=== PATIENT | male | born 1965 | race Caucasian/White ===

== ENCOUNTER → 2018-12-11 10:49 | Outpatient (CLI) | payer BC, SELFPAY ==
[2018-12-11 14:25] LABS: Alanine Aminotransferase 33 U/L (12-78); Albumin Level 3.5 gm/dL (3.4-5.0); Albumin/Globulin Ratio 0.9 (1.1-1.8); Alkaline Phosphatase 94 U/L (46-116); Anion Gap 14.9 mEq/L (5-15); Aspartate Amino Transferase 21 U/L (15-37); Bilirubin,Total 0.3 mg/dL (0.2-1.0); Blood Urea Nitrogen 26 mg/dL (7-18); Calcium 8.7 mg/dL (8.5-10.1); Carbon Dioxide 27 mmol/L (21.0-32.0); Chloride 104 mmol/L (98-107); Chol/HDL Ratio 3.9 (1-3.5); Cholesterol 167 mg/dL (140-200); Creatinine,Serum 1.19 mg/dL (0.70-1.30); Estimated Glomerular Filt Rate 64 ml/min (>60); GFR (African American) 77 ML/MIN (>60); Globulin 3.7 gm/dl (1.3-3.2); Glucose 118 mg/dL (74-106); HDL Cholesterol 43 mg/dL (27-67); LDL Cholesterol 90 mg/dL (0-130); Potassium 3.9 mmoL/L (3.5-5.1); Sodium 142 mmol/L (136-145); Total Protein,Serum 7.2 gm/dL (6.4-8.2); Triglycerides 172 mg/dL (30-200); VLDL Cholesterol 34 mg/dL (0-40)
== END ==
PROVIDERS: PCP Nurse Practitioner Family; Visit Provider Nurse Practitioner Family
DX: Z00.00 Encounter for general adult medical examination without abnormal findings (principal); I10 Essential (primary) hypertension
CPT/HCPCS: 36415; 80053; 80061

== ENCOUNTER → 2019-05-01 07:38 | Outpatient (CLI) | payer BC, SELFPAY ==
[2019-05-01 15:34] LABS: Alanine Aminotransferase 35 U/L (12-78); Albumin Level 3.7 gm/dL (3.4-5.0); Alkaline Phosphatase 78 U/L (46-116); Anion Gap 12.9 mEq/L (5-15); Aspartate Amino Transferase 19 U/L (15-37); Bilirubin,Total 0.4 mg/dL (0.2-1.0); Blood Urea Nitrogen 20 mg/dL (7-18); Calcium 8.7 mg/dL (8.5-10.1); Carbon Dioxide 28 mmol/L (21.0-32.0); Chloride 104 mmol/L (98-107); Chol/HDL Ratio 3.1 (1-3.5); Cholesterol 173 mg/dL (140-200); Creatinine,Serum 1.07 mg/dL (0.70-1.30); Estimated Glomerular Filt Rate 72 ml/min (>60); GFR (African American) 87 ML/MIN (>60); Globulin 3.6 gm/dl (1.3-3.2); Glucose 90 mg/dL (74-106); HDL Cholesterol 56 mg/dL (27-67); LDL Cholesterol 101 mg/dL (0-130); Potassium 3.9 mmoL/L (3.5-5.1); Sodium 141 mmol/L (136-145); Total Protein,Serum 7.3 gm/dL (6.4-8.2); Triglycerides 82 mg/dL (30-200); VLDL Cholesterol 16 mg/dL (0-40)
== END ==
PROVIDERS: PCP Nurse Practitioner Family; Visit Provider Nurse Practitioner Family
DX: Z00.00 Encounter for general adult medical examination without abnormal findings (principal)
CPT/HCPCS: 36415; 80053; 80061

== ENCOUNTER → 2020-01-03 11:50 | Outpatient (CLI) | payer BC, SELFPAY ==
[2020-01-03 14:28] LABS: Prostate Specific Ag Screen 0.9 ng/ml (0.0-4.0)
== END ==
PROVIDERS: Visit Provider Urology
DX: Z12.5 Encounter for screening for malignant neoplasm of prostate (principal)
CPT/HCPCS: 36415; G0103

== ENCOUNTER → 2020-01-24 09:06 | Outpatient (CLI) | payer BC, SELFPAY ==
[2020-01-24 10:43] LABS: Coronavirus 19 IgG Antibody Negative (Negative); Coronavirus 19 IgM Antibody Negative (Negative)
== END ==
PROVIDERS: Visit Provider Internal Medicine Gastroenterology
DX: Z01.818 Encounter for other preprocedural examination (principal); Z12.11 Encounter for screening for malignant neoplasm of colon
CPT/HCPCS: 36415; 86328

== ENCOUNTER 2020-01-25 11:03 | Day surgery (SDC) | payer BC, SELFPAY ==
[2020-01-17 13:19] VITALS: BMI 35.9
[2020-01-25] VITALS (7 sets, daily range): BP systolic 108–130; BP diastolic 55–82; PULSE 63–70; RESP 16–18; TEMP 36.1–36.5; O2SAT 94–97
[2020-01-25 12:45] LABS: POC Glucose,Bedside 142 (70-110)
--- NOTE | 2020-01-25 13:11 | P.PN_ITS ---
[facility] Anesthesia Checklist - Patient Identification Patient Identification: Arm Band - Structural Data Admitted From: Home Planned Operative Procedure/s: colonoscopy Consent for Planned Operative Procedure(s) Verified: Yes Verified Documents: Surgical Consent, History and Physical - NPO Status Verified Time NPO: 00:00 - Additional verifications Anesthesia Reactions: No - Airway Assessment C-Spine Mobility Assessed: Yes (mp3) TMJ Mobility Assessed: Yes Dentition: Good Dentition - Neurological Assessment Level of Consciousness: Awake, Alert - Anesthesia Plan Anesthesia Risk discussed: Yes Anesthesia Plan: Verified ASA Class: III Anesthesia Type: MAC [facility] History I have reviewed the patient's past medical history: Yes Medical History: Reports:: Diabetes Mellitus Type 2, Hypertension Denies:: Cancer, Diabetes Mellitus Type 1, Internal Pacemaker, MRSA, Seizures *Have you ever received a pneumonia vaccine?: Yes *Have you received a flu vaccine this season?: Yes Anesthesia experience/problems:: nac Laterality Cases: Bilateral: Tonsillectomy Other Surgeries: Yes: Appendectomy. No: Pacemaker Amputation: No Fractures: No - *Social History Last grade of school completed: 7th or 8th Smoking Status: Former smoker Alcohol Intake: never Substance Use Type: denies use *Occupational Status:: employed Housing: house *Travel in the last 8 weeks: None Family Hx:: Asthma, Cancer, Diabetes, Heart Attack, Hyperlipidemia, Hypertension , Stroke, Thyroid Disorder
--- NOTE | 2020-01-25 13:31 | P.PCN_ITS ---
[facility] Procedure Note Procedure Note:: Colonoscopy Procedure Report: Colonoscopy with cold snare polypectomy Endoscopist: Phill Hayes II, MD Referring physician: SHEILA Butler Date of Procedure: January 25, 2020 Equipment: Olympus 180 variable stiffness pediatric colonoscope Sedation: MAC sedation Indication: Mr. Fernández is a 54-year-old gentleman who has had pain in the right flank. He did have a CT scan of the abdomen showing some mild diverticulosis in the sigmoid colon. The CAT scan did identify that there was also some fatty infiltration of the liver and a right renal cyst. The patient states the pain does radiate into the back. The patient does state that his father had colon cancer in his 50s. The patient also states that he has 2 paternal uncles with colon cancer and a paternal grandfather with colon cancer in his early 50s. The patient has never had a colonoscopy. He reports no rectal bleeding, weight loss or change in bowel habits. Procedure: Prior to the procedure, a history and physical exam was performed, and patient's medications and allergies were reviewed. The risks, benefits and alternatives of the sedation and procedure were discussed with the patient. All questions were answered and informed consent was obtained. The patient was brought to the procedure room. Patient identification and proposed procedure were verified by the physician and the nurse. The patient was placed in a left lateral decubitus position and the scope was passed under direct vision. Throughout the procedure, the patient's blood pressure, pulse, and oxygen saturations were monitored continuously. The colonoscopy was accomplished without difficulty. The patient tolerated the procedure well. Findings: On digital rectal examination there was normal rectal tone. There were no external hemorrhoids. The prostate was 2+, smooth, soft, symmetric without nodules. The colonoscope was introduced through the anal canal to the rectum and advanced to the cecum. The ileocecal valve and appendiceal orifice were identified. The scope was advanced a short distance into the ileum which appeared grossly normal. The scope was then withdrawn into the colon. The cecum, ascending and transverse colon and mucosa were grossly normal. There were 2 diminutive colon polyps (3 and 4 mm) in the descending colon which were removed via cold snare polypectomy. There were a few mildly scattered diverticuli throughout the descending and sigmoid colon (LEFT colon). The rectum itself was normal. Upon retroflexion within the rectum there were grade 1 internal hemorrhoids. The preparation was excellent throughout with [place] Preparation Score of 9. The cecal time was 11 minutes. Impression: 1. Diminutive colon polyps x2 2. Mild left-sided diverticulosis 3. Grade 1 internal hemorrhoids Plan: I do feel that the patient may have some hepatic flexure syndrome causing his right flank pain. We will discuss treatment options. I would consider additional testing including ultrasound of the right upper quadrant and/or HIDA scan. I will follow-up the polyp histology and recommend repeat screening/surveillance colonoscopy again in 5 years. I would encourage bulk fiber supplementation on a long-term daily maintenance basis.
== END 2020-01-25 14:29 | disposition home or self-care (01) ==
LOC: OUTP 11:05
PROVIDERS: PCP Internal Medicine Adolescent Medicine; Visit Provider Internal Medicine Gastroenterology
PROC: 0DJD8ZZ Inspection of Lower Intestinal Tract, Via Natural or Artificial Opening Endoscopic (ICD-10-PCS; CPT 45378; principal; 2020-01-25 12:00)
DX: Z12.11 Encounter for screening for malignant neoplasm of colon (principal); K63.5 Polyp of colon; K57.30 Diverticulosis of large intestine without perforation or abscess without bleeding; K64.0 First degree hemorrhoids; I10 Essential (primary) hypertension; E11.9 Type 2 diabetes mellitus without complications; K76.0 Fatty (change of) liver, not elsewhere classified; Z85.038 Personal history of other malignant neoplasm of large intestine; Z85.46 Personal history of malignant neoplasm of prostate; Z90.89 Acquired absence of other organs; Z90.49 Acquired absence of other specified parts of digestive tract; Z83.438 Family history of other disorder of lipoprotein metabolism and other lipidemia
CPT/HCPCS: 45385; 82962

== ENCOUNTER → 2020-01-28 09:00 | Outpatient (CLI) | payer BC, SELFPAY ==
--- NOTE | 2020-01-28 09:23 | US_ITS ---
PROCEDURE: US ABDOMEN LIMITED CLINICAL INDICATION: RUQ PAIN COMPARISON: No exams were available for comparison FINDINGS: PANCREAS: Unremarkable. No obvious mass or abnormal fluid collection. No ductal dilatation LIVER: Diffuse increased echogenicity of the liver with poor through transmission of sound consistent with hepatic steatosis. No focal liver lesion demonstrated. There is appropriate direction of blood flow within non dilated portal vein. RIGHT KIDNEY: 5.5 cm benign-appearing cyst lower pole right kidney GALLBLADDER: No gallstones, gallbladder wall thickening, pericholecystic fluid, or biliary dilatation. IMPRESSION: Right renal cyst Fatty liver Unremarkable gallbladder Dictated by: Stewart Jordan MD 01/29/2020 07:42 Electronically signed by Stewart Jordan MD in [place] 01/29/2020 07:42
== END ==
PROVIDERS: Visit Provider Internal Medicine Gastroenterology
DX: R10.11 Right upper quadrant pain (principal)
CPT/HCPCS: 76705

== ENCOUNTER → 2020-01-31 09:26 | Outpatient (POV) | payer BC, SELFPAY ==
[2020-01-31 09:53] VITALS: BP 123/87; PULSE 75; RESP 18; TEMP 36.8; O2SAT 99; BMI 35.5
--- NOTE | 2020-01-31 11:00 | HMH.PMCON ---
Assessment and Plan (1) Degenerative joint disease (DJD) of lumbar spine Current visit: Yes Status: Chronic Category: Medical Code(s): M47.816 - Spondylosis without myelopathy or radiculopathy, lumbar region (2) Lumbar radiculopathy Current visit: Yes Status: Chronic Category: Medical Code(s): M54.16 - Radiculopathy, lumbar region (3) Facet arthropathy Current visit: Yes Status: Chronic Category: Medical Code(s): M47.819 - Spondylosis without myelopathy or radiculopathy, site unspecified - Assessment and plan all Dx Assessment and Plan for all problems:: We will start the patient on Flexeril 10 mg 1 tablet p.o. 3 times daily. He is currently taking diclofenac. We will schedule him for medial branch block/facet joint injections at L4-L5 L5-S1. He does have imaging that does show some facet arthropathy. We will follow-up with him after his injections to reassess his symptoms. He is not on any anticoagulation therapy. He is currently undergoing physical therapy he has been instructed to contact clinic if he has any concerns before his next appointment. The patient and I specifically discussed risk factors for COVID19. These risks include, but are not limited to age greater than 60, heart or lung disease, diabetes, immunosuppression, and travel. We also discussed NSAIDs may worsen COVID19 infection or symptoms. Patient should not use NSAIDs to treat COVID19 signs or symptoms. Patient was also informed that any type of corticosteroid of any form (oral or injection) will decrease the patient's immune system response and may increase the likelihood of COVID19 infection [address] symptoms[address] Helton has reviewed this note and agrees with this plan of care. This note was dictated using voice recognition software and make contain errors or omissions. HPI - Data of Consult Patient: new to practice Consult date: 01/31/20 Requesting Physician: Alannah Valverde APRN Primary Care Provider: Sony Rucker MD - Consult Narrative Reason for consult: Low back pain History of present illness: Mr. Fernández is a 54 year old male who presents today for consultation for low back pain. Patient says that he has had back pain for more than 5 years, however, it is progressively gotten worse over the last 2 months. He says his pain is worse with bending forward and extension at his waist. He says mowing grass or doing the lawn care causes worsening pain. He says any type of movement when he leans forward causes him worsening pain. He does rate his pain a 6 out of 10 today. Patient says that he has tried diclofenac and is currently taking the medication but has not given him much relief. He is currently in physical therapy. He says that he initially was having leg pain, however, the physical therapy has taken care of that pain. His pain now is primarily with extension and turning at his waist. He does also use ice and heat therapies. CC: Alannah Valverde APRN [facility] History I have reviewed the patient's past medical history: Yes Medical History: Reports:: Diabetes Mellitus Type 2, Hypertension Denies:: Cancer, Diabetes Mellitus Type 1, Internal Pacemaker, MRSA, Seizures *Have you ever received a pneumonia vaccine?: Yes *Have you received a flu vaccine this season?: Yes Other Medical History: Reports: Arthritis Laterality Cases: Bilateral: Tonsillectomy Other Surgeries: Yes: Appendectomy. No: Pacemaker Amputation: No Fractures: No - *Social History Smoking Status: Never smoker Alcohol Intake: never Substance Use Type: denies use *Occupational Status:: other Housing: house *Travel in the last 8 weeks: None Family Hx:: Unable to obtain Review of Systems - Review of Systems Review of Systems General: No recent weight changes, no fever, no sleep disturbances Respiratory: No cough, no shortness of air, no recurring pulmonary infections Cardiovascular/peripheral vascular: No chest pain, no palpitations, no edema,
== END ==
PROVIDERS: PCP Internal Medicine Adolescent Medicine; Visit Provider Clinical Nurse Specialist Family Health
DX: M47.896 Other spondylosis, lumbar region (principal); M54.16 Radiculopathy, lumbar region; M12.88 Other specific arthropathies, not elsewhere classified, other specified site
CPT/HCPCS: 99202

== ENCOUNTER 2020-02-15 14:00 | Day surgery (SDC) | payer BC, SELFPAY ==
[2020-02-15 14:42] VITALS: BP 126/84; PULSE 92; RESP 18; TEMP 36.1; O2SAT 96; BMI 35.4
[2020-02-15 15:22] VITALS: BP 149/88; PULSE 75; RESP 18
[2020-02-15 15:23] VITALS: BP 148/88; PULSE 90; RESP 18; O2SAT 99
--- NOTE | 2020-02-15 15:28 | P.PCN_ITS ---
- Procedure Date: 02/15/20 Time: 15:28 Anesthesiologist:: Aquiles Helton MD Complications:: None Pre-procedure Diagnosis:: Degenerative disc disease of lumbar spine with lumbar spondylosis and facet arthropathy of lumbar spine Post-procedure Diagnosis:: Same Indications for Procedure:: The patient is a pleasant 54-year-old white male who we are treating for low back pain with lumbar spondylosis and facet arthropathy of lumbar spine. He has increased pain with extension and twisting. He has tenderness over the facet joints of L4-5 and L5-S1. We will do bilateral lumbar medial branch block/facet joint injections of L4-5 and L5-S1 today to help him with his pain symptoms. Procedure Details:: Lumbar medial branch block Informed consent was obtained and the risks and benefits of the procedure was explained to the patient. The back was prepped using ChloraPrep. The skin and subcutaneous tissues were anesthetized using lidocaine. I placed 22-gauge sp inal needles into the facet joint/medial branches of L4-L5 and L5-S1 bilaterally. Needle placement was confirmed with dye. After this we injected 3 mL bupivacaine 0.25% and Depo-Medrol 20 mg into each facet joint/medial branch of L4-L5 and L5-S1 bilaterally. We used a total of 80 mg Depo-Medrol for both levels bilaterally. The patient tolerated the procedure well with no complications. Plan and Disposition:: We will follow-up with him in 2 weeks. Will reevaluate his symptoms at that time. If successful we will seek approval for radiofrequency ablation to the fa cet joint/medial branches of L4-5 and L5-S1 bilaterally.
[2020-02-15 15:34] VITALS: BP 131/91; PULSE 80; RESP 18; O2SAT 96
== END 2020-02-15 15:35 | disposition home or self-care (01) ==
LOC: SC.PAINP 14:01
PROVIDERS: PCP Nurse Practitioner Family; Visit Provider Anesthesiology
DX: M51.36 Other intervertebral disc degeneration, lumbar region (principal); M47.816 Spondylosis without myelopathy or radiculopathy, lumbar region; M12.88 Other specific arthropathies, not elsewhere classified, other specified site; E11.9 Type 2 diabetes mellitus without complications; I10 Essential (primary) hypertension; K76.0 Fatty (change of) liver, not elsewhere classified; Z90.89 Acquired absence of other organs; Z88.8 Allergy status to other drugs, medicaments and biological substances; Z79.82 Long term (current) use of aspirin; Z79.84 Long term (current) use of oral hypoglycemic drugs; Z79.4 Long term (current) use of insulin; Z79.899 Other long term (current) drug therapy
CPT/HCPCS: 64493; 64494; J1030; Q9966

== ENCOUNTER → 2020-02-25 10:05 | Outpatient (CLI) | payer BC, SELFPAY ==
--- NOTE | 2020-02-25 10:08 | NM_ITS ---
PROCEDURE: NM HEPATOBILIARY W PHARM CLINICAL INDICATION: RUQ PAIN COMPARISON: No exams were available for comparison TECHNIQUE: DOSE: 8.3 mCi technetium Choletec and 2.3 mcg of CCK FINDINGS: Homogeneous activity is present within the hepatic parenchyma. Activity is present in the gallbladder by 5 minutes. Activity is present in the small bowel by 55 minutes. The gallbladder ejection fraction is calculated to be 15 percent. Patient reported mild pain with CCK infusion IMPRESSION: Low ejection fraction 15 percent with mild pain reported with CCK infusion and some delay in visualization of the small bowel. These findings may be seen with gallbladder dyskinesia. No evidence of common or cystic duct obstruction. Dictated by: Stewart Jordan MD 02/25/2020 15:21 Stewart Jordan MD in [place] 02/25/2020 15:21
--- NOTE | 2020-02-25 10:48 | HMH.ITSHM ---
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 []TAMSULOSIN METFORMIN LISINOPRIL DICLOFENAC ATENOLOL AMLODIPINE MULTIVITAMIN FLEXERIL ASA
== END ==
PROVIDERS: PCP Nurse Practitioner Family; Visit Provider Internal Medicine Gastroenterology
DX: R10.11 Right upper quadrant pain (principal)
CPT/HCPCS: 78227; A9537; J2805

== ENCOUNTER 2020-03-05 08:00 | Outpatient (RCR) | payer BC, SELFPAY | END 2020-03-05 12:00 | disposition home or self-care (01) | LOC: PT.CARL 08:00 | PROVIDERS: PCP Nurse Practitioner Family; Visit Provider Nurse Practitioner Family | DX: M54.42 Lumbago with sciatica, left side (principal) | CPT/HCPCS: 97010; 97014; 97110; 97140; 97163; G0283 ==

== ENCOUNTER → 2020-03-12 14:53 | Outpatient (CLI) | payer BC, SELFPAY ==
--- NOTE | 2020-03-12 15:13 | ECG_ITS ---
APPROVED REPORT Exam: Resting ECG HR:99 bpm ECG Measurements Heart Rate 99 AXES AK 136 P 59 QRSd 84 QRS 43 QT 350 T 18 QTc 449 <Conclusion> Normal sinus rhythm Normal ECG Electronically signed by : Sony Rucker, 03/16/2020 15:07:14
[2020-03-12 15:18] LABS: Basophils % 0.3 % (0.1-2.0); Eosinophils # 0.1 K/mm3 (0.0-0.4); Eosinophils % 1.2 % (0.1-12.0); Hemoglobin 14.8 g/dL (14.1-18.0); Lymphocytes # 2.1 K/mm3 (0.7-4.5); Lymphocytes % 19.8 % (10-50); Mean Corpuscular HGB Conc 35.1 g/dL (31.8-35.4); Mean Corpuscular Hemoglobin 32.8 pg (27.0-31.2); Mean Corpuscular Volume 93.5 fl (80-94); Mean Platelet Volume 7.9 fl (7.4-10.4); Monocytes # 0.7 K/mm3 (0.1-1.0); Monocytes % 6.9 % (1.7-9.3); Neutrophils # 7.4 K/mm3 (1.8-7.8); Neutrophils % 71.8 % (37.0-80.0); Platelet Count 195 K/mm3 (142-424); Red Cell Distribution Width 14.2 % (11.5-17.5); White Blood Count 10.4 K/mm3 (4.8-10.8)
[2020-03-12 15:50] LABS: Chloride 100 mmol/L (98-107); Potassium 4.2 mmoL/L (3.5-5.1); Sodium 140 mmol/L (136-145)
[2020-03-12 15:53] LABS: Alanine Aminotransferase 64 U/L (12-78); Albumin Level 4.1 g/dl (3.5-5.0); Albumin/Globulin Ratio 1.3 (1.1-1.8); Alkaline Phosphatase 89 U/L (38-126); Anion Gap 15.2 mEq/L (5-15); Aspartate Amino Transferase 43 U/L (17-59); Bilirubin,Total 0.4 mg/dl (0.2-1.3); Blood Urea Nitrogen 26 mg/dl (9-20); Calcium 9.6 mg/dl (8.4-10.2); Carbon Dioxide 29 mmol/L (22.0-30.0); Estimated Glomerular Filt Rate 70 ml/min (>60); GFR (African American) 84 ML/MIN (>60); Globulin 3.1 g/dL (1.3-3.2); Glucose 179 mg/dl (74-100); Total Protein,Serum 7.2 g/dl (6.3-8.2)
[2020-03-12 16:00] LABS: Coronavirus 19 IgG Antibody Negative (Negative); Coronavirus 19 IgM Antibody Negative (Negative)
== END ==
PROVIDERS: Visit Provider Surgery
DX: Z01.818 Encounter for other preprocedural examination (principal); K81.1 Chronic cholecystitis
CPT/HCPCS: 36415; 80053; 85025; 86328; 93005

== ENCOUNTER → 2020-03-13 13:28 | Outpatient (POV) | payer BC, SELFPAY ==
[2020-03-13 14:25] VITALS: BP 151/102; PULSE 113; RESP 21; TEMP 36.8; O2SAT 97; BMI 21.4
--- NOTE | 2020-03-13 14:30 | HMH.PAINSOAP ---
[facility] Pain Management SOAP Note Subjective:: Patient is a 54-year-old male who presents today for follow-up after medial branch block/facet joint injections at L4-L5 L5-S1. Patient is being treated for low back pain. He reports that he got approximately 90% relief for 4 days. His pain has returned. He rates his pain an 8 out of 10 today. 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 He says that he has had difficulty over the last few days doing outdoor work due to the pain. He is scheduled to undergo a cholecystectomy tomorrow morning. Would like to proceed with a repeat injection to see if he gets longer relief. He and I did discuss possible RFA in the future if his rib pain returns after the medial branch block again. We will need to postpone any injective therapy until he has healed from his cholecystectomy. Patient is continuing with a home stretching program. Review of Systems General: No recent weight changes, no fever, no sleep disturbances Respiratory: No cough, no shortness of air, no recurring pulmonary infections Cardiovascular/peripheral vascular: No chest pain, no palpitations, no edema, no shortness of breath Gastrointestinal: No new onset incontinence, normal bowel movements reported Genitourinary: No new onset incontinence Musculoskeletal: low back pain Psychiatric: Normal mood/affect Neurological: [Denies weakness in extremities], [denies balance issues] Objective:: Physical exam General: Alert and oriented x3, no acute distress, pleasant and cooperative, [on room air] Lungs: Respirations even and unlabored, symmetrical chest expansion Eyes: PERRL Musculoskeletal: Flexion and extension of lumbar spine somewhat guarded secondary to pain, deep tendon reflexes normal, strength in upper and lower extremities [5/5], [abnormal gait noted] positive Kemps test Neurological: Speech clear, datastage consultant equal, no gross sensory deficit Assessment:: Degenerative disc disease lumbar spine with lumbar spondylosis and facet arthropathy lumbar spine Plan:: We will schedule the patient for repeat medial branch block/facet joint injections at L4-L5 bilaterally. He is not on any anticoagulation therapy. We will plan for the injections after he has fully healed from his cholecystectomy. We will see him back in the clinic after his injections to reassess his symptoms. The patient has been instructed to contact clinic if he has any concerns before his next appointment. The patient and I specifically discussed risk factors for COVID19. These risks include, but are not limited to age greater than 60, heart or lung disease, diabetes, immunosuppression, and travel. We also discussed NSAIDs may worsen COVID19 infection or symptoms. Patient should not use NSAIDs to treat COVID19 signs or symptoms. Patient was also informed that any type of corticosteroid of any form (oral or injection) will decrease the patient's immune system response and may increase the likelihood of COVID19 infection [address] symptoms[address] Helton has reviewed this note and agrees with this plan of care. This note was dictated using voice recognition software and make contain errors or omissions. [facility] History I have reviewed the patient's past medical history: Yes Medical History: Reports:: Diabetes Mellitus Type 2, Hypertension Denies:: Cancer, Diabetes Mellitus Type 1, Internal Pacemaker, MRSA, Seizures *Have you ever received a pneumonia vaccine?: Yes *Have you received a flu vaccine this season?: Yes Other Medical History: Reports: Arthritis Laterality Cases: Bilateral: Tonsillectomy Other Surgeries: Yes: No Previous Surgery, Appendectomy, Colonoscopy. No: Pacemaker Amputation: No Fractures: No - *Social History Smoking Status: Never smoker Alcohol Intake: never Substance Use Type: denies use *Occupational Status:: employed Housing: house Household Members: family *Travel in the last 8 weeks: None Family Hx:: No significant family history
== END ==
PROVIDERS: PCP Internal Medicine Adolescent Medicine; Visit Provider Clinical Nurse Specialist Family Health
DX: M51.36 Other intervertebral disc degeneration, lumbar region (principal); M47.816 Spondylosis without myelopathy or radiculopathy, lumbar region; M12.88 Other specific arthropathies, not elsewhere classified, other specified site
CPT/HCPCS: 99212

== ENCOUNTER 2020-03-14 06:55 | Day surgery (SDC) | payer BC, SELFPAY ==
[2020-03-13 12:27] VITALS: BMI 34.2
[2020-03-14] VITALS (14 sets, daily range): BP systolic 124–157; BP diastolic 65–97; PULSE 69–77; RESP 12–18; TEMP 36.3–43; O2SAT 92–96
[2020-03-14 07:22] LABS: POC Glucose,Bedside 145 (70-110)
--- NOTE | 2020-03-14 07:48 | P.PN_ITS ---
[facility] Anesthesia Checklist - Patient Identification Patient Identification: Arm Band - Structural Data Admitted From: Home Planned Operative Procedure/s: laparoscopic cholecystectomy Consent for Planned Operative Procedure(s) Verified: Yes Verified Documents: Surgical Consent, History and Physical - NPO Status Verified Time NPO: 00:00 - Additional verifications Anesthesia Reactions: No Hx Blood Transfusions: No Blood Transfusion Reaction: No - Airway Assessment C-Spine Mobility Assessed: Yes (mp2) TMJ Mobility Assessed: Yes Dentition: Good Dentition - Neurological Assessment Level of Consciousness: Awake, Alert - Anesthesia Plan Anesthesia Risk discussed: Yes Anesthesia Plan: Verified ASA Class: III Anesthesia Type: General [facility] History I have reviewed the patient's past medical history: Yes Medical History: Reports:: Asthma, Diabetes Mellitus Type 2, Hypertension Denies:: Cancer, Internal Pacemaker, MRSA, Seizures *Have you ever received a pneumonia vaccine?: Yes *Have you received a flu vaccine this season?: Yes Other Medical History: Reports: Arthritis. Denies: Blood Transfusion Reaction Anesthesia experience/problems:: nac Laterality Cases: Bilateral: Tonsillectomy Other Surgeries: Yes: Appendectomy, Colonoscopy. No: Pacemaker Amputation: No Fractures: No - *Social History Last grade of school completed: 9th or 10th Smoking Status: Never smoker Alcohol Intake: never Substance Use Type: denies use *Occupational Status:: unemployed Housing: house Household Members: family *Travel in the last 8 weeks: None Family Hx:: Unable to obtain
--- NOTE | 2020-03-14 09:58 | P.OP_ITS ---
Date of procedure: 03/14/20 Pre-op Diagnosis:: biliary dyskinesia Post-op Diagnosis:: Chronic cholecystitis Procedure performed:: Laparoscopic cholecystectomy Surgeon:: Mukund Rivera MD BANDOLEER STRAIGHTENER STAMPER:: Jeovanny Mcdonald Anesthesia: GETA Estimated blood loss (mL): 15 Operative findings:: Significant pericholecystic fat stranding with dense adhesions between gall bladder and omentum Severe thickening of infundibulum Dome down approach utilized secondary to severe thickening of the infundibulum and chronic inflammatory changes Operative note:: After informed consent was obtained, the patient was taken to the operating room and placed in the supine position. General anesthesia was induced and the abdomen was prepped and draped in a sterile fashion. After infiltration with local anesthetic an infraumbilical incision was made. A Veress needle was placed in position. The abdomen was insufflated. A 5 mm optical trocar was placed in position. Under direct visualization, a 12 mm trocar was placed in the subxiphoid position and 2 additional 5 mm trocars were placed in the right upper quadrant. The gallbladder was elevated up and over the liver margin. The tissue around the cystic duct was carefully dissected. The entire infundibular region was very thickened and dissection was very difficult. The cystic artery was dissected free from surrounding tissue. 2 clips were placed then the artery was transected along the infundibular margin. The decision was made to proceed with a dome down approach . Harmonic lillie were then utilized to dissect the gallbladder away from the liver margin. Endoloops (x2) were then placed around the gallbladder and secured at the infundibulum. The gallbladder was then transected with harmonic lillie. It was placed in a retrieval bag and removed through the subxiphoid trocar site. The right upper quadrant was thoroughly irrigated. No active bleeding or bile leak was noted. Fascia at the subxiphoid trocar site was reapproximated utilizing the NeoClose device. The remaining trocars were removed. All wounds were irrigated and skin was closed with 4-0 Monocryl in a subcuticular fashion. Steri-Strips were applied. The patient's anesthetic agents were reversed and extubation was completed prior to transfer to recovery in stable condition. Condition: stable Disposition: PACU Specimens:: Gallbladder Complications:: No immediate
--- NOTE | 2020-03-14 10:06 | P.PN_ITS ---
[facility] Anesthesia Record Part I Intake, IV Amount: 1,500 Estimated blood loss (mL): 20 Urine output (mL): 0 Blood Pressure: 131/65 SaO2: 96 Pulse Rate: 71 Respiratory Rate: 12 Temperature: 97.3 F Patient is:: Awake, Stable Stable to PACU at:: 10:05
--- NOTE | 2020-03-17 09:54 | HMH.ANESII ---
[facility] Anesthesia Record Part II Discharge Time: 10:45 Destination: Surgical Day Care (OP Surgery) PACU nurse assessment reviewed?: Yes Patient Condition:: Good Anesthesia Complications:: None Swallowing reflex intact?: Yes Cyanosis?: No Blood Pressure: 124/83 Pulse Rate: 76 Temperature: 98.3 F Mental Status: Alert & Oriented Pain level:: 5 Nausea and/or vomitting:: None Intake, IV Amount: 0 (Normovolemic)
[2020-03-17 09:56] VITALS: BP 124/83; PULSE 76; TEMP 36.8
== END 2020-03-14 12:05 | disposition home or self-care (01) ==
LOC: OR 06:55
PROVIDERS: PCP Internal Medicine Adolescent Medicine; Visit Provider Surgery
PROC: 0FT44ZZ Resection of Gallbladder, Percutaneous Endoscopic Approach (ICD-10-PCS; CPT 47562; principal; 2020-03-14 08:30)
DX: K81.1 Chronic cholecystitis; K82.8 Other specified diseases of gallbladder; E11.9 Type 2 diabetes mellitus without complications; I10 Essential (primary) hypertension; J45.909 Unspecified asthma, uncomplicated; Z90.89 Acquired absence of other organs; Z90.49 Acquired absence of other specified parts of digestive tract; Z79.82 Long term (current) use of aspirin; Z79.899 Other long term (current) drug therapy; Z79.84 Long term (current) use of oral hypoglycemic drugs; M19.90 Unspecified osteoarthritis, unspecified site
CPT/HCPCS: 47562; 82962; 96374; J2405; J2710

== ENCOUNTER → 2020-04-02 10:20 | Outpatient (CLI) | payer BC, SELFPAY ==
[2020-04-02 13:52] LABS: Chloride 100 mmol/L (98-107); Potassium 3.8 mmoL/L (3.5-5.1); Sodium 138 mmol/L (136-145)
[2020-04-02 13:54] LABS: Alanine Aminotransferase 60 U/L (12-78); Aspartate Amino Transferase 40 U/L (17-59); Blood Urea Nitrogen 20 mg/dl (9-20); Estimated Glomerular Filt Rate 78 ml/min (>60); GFR (African American) 94 ML/MIN (>60)
[2020-04-02 13:55] LABS: Albumin Level 3.9 g/dl (3.5-5.0); Albumin/Globulin Ratio 1.3 (1.1-1.8); Alkaline Phosphatase 91 U/L (38-126); Anion Gap 13.8 mEq/L (5-15); Bilirubin,Total 0.7 mg/dl (0.2-1.3); Carbon Dioxide 28 mmol/L (22.0-30.0); Chol/HDL Ratio 4.7 (1-3.5); Cholesterol 227 mg/dl (140-200); Globulin 3.1 g/dL (1.3-3.2); Glucose 203 mg/dl (74-100); HDL Cholesterol 48 mg/dl (40-60); Triglycerides 165 mg/dl (30-150); VLDL Cholesterol 33 mg/dL (0-40)
== END ==
PROVIDERS: Visit Provider Nurse Practitioner Family
DX: E11.65 Type 2 diabetes mellitus with hyperglycemia (principal); Z79.84 Long term (current) use of oral hypoglycemic drugs
CPT/HCPCS: 36415; 80053; 80061; 83036

== ENCOUNTER 2020-04-11 09:41 | Day surgery (SDC) | payer BC, SELFPAY ==
[2020-04-11 10:01] VITALS: BP 122/83; PULSE 91; RESP 20; TEMP 36.5; O2SAT 91; BMI 35.1
[2020-04-11 10:38] VITALS: BP 140/78; PULSE 85
[2020-04-11 10:39] VITALS: BP 140/79; PULSE 85; RESP 18; O2SAT 98
--- NOTE | 2020-04-11 10:45 | P.PCN_ITS ---
- Procedure Date: 04/11/20 Time: 10:45 Anesthesiologist:: Aquiles Helton MD Complications:: None Pre-procedure Diagnosis:: Degenerative disc disease of lumbar spine with lumbar spondylosis and lumbar facet arthropathy Post-procedure Diagnosis:: Same Indications for Procedure:: This patient is a pleasant 54-year-old [place] male who we have been treating for low back pain with lumbar spondylosis and lumbar facet arthropathy. Patient got 90% relief for 4 days after his last round of medial branch blocks. 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 We will plan on repeat bilateral lumbar medial branch blocks today. We can only take him off work for today. If these are successful we will plan on RFA ablation to the same facet joints of L4-5 and L5-S1. Procedure Details:: Lumbar medial branch block Informed consent was obtained and the risks and benefits of the procedure was explained to the patient. The back was prepped using ChloraPrep. The skin and subcutaneous tissues were anesthetized using lidocaine. I placed 22-gauge spinal needles into the facet joint/medial branches of L4-L5 and L5-S1 bilaterally. Needle placement was confirmed with dye. After this we injected 3 mL bupivacaine 0.25% and Depo-Medrol 20 mg into each facet joint/medial branch of L4-L5 and L5-S1 bilaterally. We used a total of 80 mg Depo-Medrol for both levels bilaterally. The patient tolerated the procedure well with no complications. Plan and Disposition:: We will follow-up with him in 1 week. We will reevaluate his symptoms at that time. Again if successful we will plan on RF ablation to the same levels of L4- 5 and L5-S1 bilaterally.
[2020-04-11 11:00] VITALS: BP 130/90; PULSE 83; RESP 18; O2SAT 96
== END 2020-04-11 11:00 | disposition home or self-care (01) ==
LOC: SC.PAINP 09:42
PROVIDERS: PCP Internal Medicine Adolescent Medicine; Visit Provider Anesthesiology
DX: M51.36 Other intervertebral disc degeneration, lumbar region (principal); M47.816 Spondylosis without myelopathy or radiculopathy, lumbar region; M12.88 Other specific arthropathies, not elsewhere classified, other specified site; E11.9 Type 2 diabetes mellitus without complications; I10 Essential (primary) hypertension; K21.9 Gastro-esophageal reflux disease without esophagitis; K76.0 Fatty (change of) liver, not elsewhere classified; K82.9 Disease of gallbladder, unspecified; Z90.89 Acquired absence of other organs
CPT/HCPCS: 64493; 64494; J1030; Q9966

== ENCOUNTER → 2020-04-14 10:08 | Outpatient (POV) | payer BC, SELFPAY | PROVIDERS: Visit Provider Nurse Practitioner Family | DX: Z00.00 Encounter for general adult medical examination without abnormal findings (principal) ==

== ENCOUNTER 2020-10-17 10:46 | Emergency (ER) | payer OTHER, SELFPAY ==
[2020-10-17 10:47] VITALS: BP 139/91; PULSE 104; RESP 16; TEMP 36.6; O2SAT 98; BMI 34.2
[2020-10-17 11:10] VITALS: BP 139/91; PULSE 104; RESP 16; TEMP 36.7; O2SAT 98; BMI 34.4
--- NOTE | 2020-10-17 11:26 | HMH.EDUTC ---
[facility] [place] Clinical Impression: Low back pain Qualifiers: Chronicity: unspecified Back pain laterality: midline Sciatica presence: with sciatica Sciatica laterality: bilateral sciatica Qualified Code(s): M54.41 - Lumbago with sciatica, right side Disposition: Home, Self-Care Condition on Discharge: Good Instructions: DI for Low Back Pain, DI for Chronic Pain -- Adult, DI for Back Pain With Sciatica Additional Instructions: Continue taking prescribed muscle relaxers and pain medication as prescribed FOllow up with your Family Doctor for further treatment and evaluation Return if needed Call Dr Helton office about starting to see him again for pain management Straight to ER if any life threatening symptoms Referrals: Rayshawn Goodwin MD [Primary Care Provider] - As needed Time of Disposition: 11:59 Medical Decision Making - Miller Inquiry Pt receiving controlled substance: No Miller was queried for this patient: No Vital Signs: 10/17/20 10:47 10/17/20 11:10 Temperature 98 F 98.0 F Temperature Source Oral Oral Pulse Rate [Radial] 104 H 104 H Respiratory Rate 16 16 Blood Pressure [Right Arm] 139/91 H 139/91 H Blood Pressure Mean [Right Arm] 107 107 Blood Pressure Source [Right Arm] Automatic Cuff Blood Pressure Position [Right Arm] Sitting Sitting 02 Sat by Pulse Oximetry 98 98 Oxygen Delivery Method Room Air Room Air Orders (Tests/Meds): ED MEDICATIONS Discontinued Medications Generic Name Dose Route Start Last Admin Trade Name Freq PRN Reason Stop Dose Admin Ketorolac Tromethamine 60 mg 10/17/20 11:36 10/17/20 11:49 Ketorolac 60mg/2ml Vial IM 10/17/20 11:37 60 mg ONCE ONE Administration Methylprednisolone Sodium Succinate 125 mg 10/17/20 11:36 10/17/20 11:49 Methylprednisolone Sod Succ 125mg Vial IM 10/17/20 11:37 125 mg ONCE ONE Administration Medical Decision Narrative: Patient states that he has taken torodol and solu medrol before without reactions or complications Discussed xray and patient declined states that he has had Xray and MRI on his back already and has a pinched nerve and does not want xray at this time Patient reports medication helped with pain [facility] [place] - General Stated complaint: back pain, no accident Time Seen by Provider: 10/17/20 11:26 Mode of Arrival: Ambulatory Source of Information: Patient Limitations: No Limitations Description of Symptoms (Recalled from Triage Doc. by RN): PATIENT C/O LOWER BACK PAIN THAT RADIATES DOWN BILATERAL LEGS X SEVERAL MONTHS. NO KNOWN INJURY HEENT Symptoms (Recalled from RN notes): No Resp Symptoms (Recalled from RN notes): No Skin Symptoms (Recalled from RN notes): No MS Symptoms (Recalled from RN notes): Yes Functional Status (Recalled from RN notes): WNL - History of Present Illness Provider Complaint: Patient states that he has had low back pain and sciatica for several years State that he was seeing Dr Helton and getting injections but lost his job and insurance and hasnt been able to get any States that he has been having pain in his lower back area that radiates down into his buttock area on both sides and upper legs like he had before and came in today to see if he could get injections to help it Denies loss of control of bowel or bladder - Related Data Home Medications Medication Instructions Recorded Confirmed atenolol 50 mg tablet 50 mg PO DAILY 01/03/20 10/17/20 metformin 500 mg tablet 1,000 mg PO DAILY 01/03/20 10/17/20 Allergies Allergy/AdvReac Type Severity Reaction Status Date / Time Iodinated Contrast Media Allergy Vomiting Verified 04/11/20 10:14 oxybutynin Allergy Hives Verified 04/11/20 10:14 - Worker's Comp Is this a Worker's Comp case?: No [facility] History - Hepatitis A Screen Drug use history?: No High risk sexual behaviors?: No History of sexually transmitted infection?: No Currently employed?: No Childcare worker?: No Do you have indoor plumbing?: Yes Do you have e
[2020-10-17 12:04] VITALS: BP 139/91; PULSE 104; RESP 16; TEMP 36.7; O2SAT 98
== END 2020-10-17 12:07 | disposition home or self-care (01) ==
PROVIDERS: Emergency Provider Nurse Practitioner; PCP Emergency Medicine
DX: M54.41 Lumbago with sciatica, right side (principal); E11.9 Type 2 diabetes mellitus without complications; I10 Essential (primary) hypertension; J45.909 Unspecified asthma, uncomplicated; Z79.899 Other long term (current) drug therapy
CPT/HCPCS: 96372; 99202; G0463

== ENCOUNTER → 2020-11-06 10:08 | Outpatient (POV) | payer OTHER, SELFPAY ==
[2020-11-06 10:13] VITALS: BP 110/78; PULSE 91; RESP 18; O2SAT 98; BMI 34.2
--- NOTE | 2020-11-06 12:40 | HMH.PAINSOAP ---
[facility] Pain Management SOAP Note Subjective:: Patient is a very pleasant 55-year-old male who presents today a for a follow-up after 2 rounds of medial branch blocks getting over 90% relief for up to 4 days after his injections. Patient is interested in moving forward with radiofrequency ablation. 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 He has tried and failed anti-inflammatories, physical therapy, injective therapy. He rates his pain a 9 out of 10. ROS General: no recent weight change, no fever, no sleep disturbances Respiratory: no cough, no shortness of air, no recurring pulmonary infections Cardiovascular/Peripheral Vascular: No chest pain, No palpitations, no edema, no shortness of breath. Gastrointestinal: no new onset incontinence, normal bowel movements reported Genitourinary: no new onset incontinence Musculoskeletal: Back pain Psychiatric: normal mood/ affect Neurological: [denies new onset weakness in extremities], [denies new onset balance issues] Objective:: Physical Exam General: Alert and oriented x3, no acute distress, pleasant and cooperative, [on room air] Lungs: Resps E/U, Symmetrical chest expansion, Eyes: PERRL Musculoskeletal: Flexion and extension of lumbar spine somewhat guarded secondary to pain, deep tendon reflexes normal, strength in upper and lower extremities [5/5], antalgic gait noted Neurological: speech clear, clinical editor equal, no gross sensory deficits Assessment:: 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 He is not on any anticoagulation therapy. I will follow-up with him afterwards reassess his symptoms at that time he has been instructed to call the office if he has any issues prior to his next appointment. Dr. Helton has reviewed this note and agrees with this plan of care. This note was dictated using voice recognition software and may contain errors or omissions [facility] History I have reviewed the patient's past medical history: Yes Medical History: Reports:: Asthma, Diabetes Mellitus Type 2, Hypertension Denies:: Cancer, Diabetes Mellitus Type 1, Internal Pacemaker, MRSA, Seizures *Have you ever received a pneumonia vaccine?: Yes *Have you received a flu vaccine this season?: Yes Other Medical History: Reports: Arthritis. Denies: Blood Transfusion Reaction Laterality Cases: Bilateral: Tonsillectomy Other Surgeries: Yes: No Previous Surgery, Appendectomy, Cardiac Catheterization, Colonoscopy. No: Pacemaker Amputation: No Fractures: No - *Social History Smoking Status: Never smoker Alcohol Intake: never Substance Use Type: denies use *Occupational Status:: other Housing: house Household Members: significant other *Travel in the last 8 weeks: None Family Hx:: Unable to obtain
== END ==
PROVIDERS: PCP Internal Medicine Adolescent Medicine; Visit Provider Clinical Nurse Specialist Family Health
DX: M51.36 Other intervertebral disc degeneration, lumbar region (principal); M47.816 Spondylosis without myelopathy or radiculopathy, lumbar region; M54.06 Panniculitis affecting regions of neck and back, lumbar region
CPT/HCPCS: 99212; G0463

== ENCOUNTER 2020-11-14 12:37 | Day surgery (SDC) | payer OTHER, SELFPAY ==
[2020-11-14 12:42] VITALS: BP 118/78; PULSE 98; RESP 18; TEMP 36.1; O2SAT 96; BMI 34.2
[2020-11-14 13:11] VITALS: BP 117/85; PULSE 104; RESP 18; O2SAT 98
[2020-11-14 13:13] VITALS: BP 118/86; PULSE 105; RESP 18; O2SAT 98
--- NOTE | 2020-11-14 13:32 | HMH.PMPROC ---
- Procedure Date: 11/14/20 Time: 13:32 Anesthesiologist:: Aquiles Helton MD Complications:: None Pre-procedure Diagnosis:: Degenerative disc disease of lumbar spine with lumbar spondylosis and lumbar facet arthropathy Post-procedure Diagnosis:: Same Indications for Procedure:: Patient is a pleasant 55-year-old male who we are treating for low back pain with lumbar spondylosis and lumbar facet arthropathy. He has done well after previous medial branch blocks with 90% relief for 4 to 5 days. Pain is now returned. He presents for RF ablation to the facet joints of L4-5 and L5-S1 bilaterally. Procedure Details:: Lumbar RFA informed consent was obtained and the risk and benefits of the procedure was explained to the patient. Patient was placed prone on the procedure table. The patient was prepped and draped in sterile fashion. C-arm fluoroscopy was used to view the lumbar spine. The skin and subcutaneous tissues were anesthetized using lidocaine. I placed 20-gauge RF needles into the facet joints of L4-5 and L5-S1 levels bilaterally. We underwent sensory stimulation. There is good sensory stimulation at 0.8 V. We underwent motor stimulation. There is no motor stimulation at 2 V. We then anesthetized these levels with lidocaine and Depo-Medrol. I used a total of 80 mg Depo-Medrol for both levels bilaterally. I then burned levels of L4-5 and L5-S1 facet joint/medial branches bilaterally for 4 minutes at 80 ?C. Patient tolerated the procedure well with no complication. Plan and Disposition:: We will follow-up with him in 2 weeks. Will reevaluate his symptoms at that time.
[2020-11-14 13:44] VITALS: BP 125/82; PULSE 94; RESP 18; O2SAT 97
== END 2020-11-14 13:44 | disposition home or self-care (01) ==
LOC: SC.PAINP 12:39
PROVIDERS: Visit Provider Anesthesiology
DX: M51.36 Other intervertebral disc degeneration, lumbar region (principal); M54.06 Panniculitis affecting regions of neck and back, lumbar region; M47.816 Spondylosis without myelopathy or radiculopathy, lumbar region
CPT/HCPCS: 64635; 64636; J1030

== ENCOUNTER 2020-12-07 09:25 | Emergency (ER) | payer OTHER, SELFPAY ==
[2020-12-07 09:27] VITALS: BP 105/82; PULSE 105; RESP 18; TEMP 36.6; O2SAT 98; BMI 34.5
--- NOTE | 2020-12-07 09:42 | XR_ITS ---
PROCEDURE INFORMATION: Exam: XR Chest Exam date and time: 12/07/2020 9:42 AM Age: 55 years old Clinical indication: Shortness of breath; Patient HX: SOA and chest tightness; Additional info: SOB TECHNIQUE: Imaging protocol: XR of the chest. Views: 1 view. COMPARISON: No relevant prior studies available. FINDINGS: Lungs: Unremarkable. No consolidation. Pleural spaces: Unremarkable. No pleural effusion. No pneumothorax. Heart/Mediastinum: Unremarkable. No cardiomegaly. Bones/joints: Unremarkable. IMPRESSION: No acute findings.
--- NOTE | 2020-12-07 09:43 | ECG_ITS ---
APPROVED REPORT Exam: Resting ECG HR:100 bpm ECG Measurements Heart Rate 100 AXES AZ 146 P 61 QRSd 76 QRS 48 QT 346 T 71 QTc 446 Conclusion Normal sinus rhythm Low voltage QRS Borderline ECG Electronically signed by : Sony Rucker, 12/09/2020 22:06:11
--- NOTE | 2020-12-07 09:52 | HMH.EDGENADL ---
ED Disposition Clinical Impression: Renal cyst, right, Ulcer of male genitalia, Angina pectoris Chronic back pain Qualifiers: Back pain location: low back pain Back pain laterality: unspecified Sciatica presence: without sciatica Qualified Code(s): M54.5 - Low back pain Disposition: Home, Self-Care Condition on Discharge: Good Instructions: Managing Chronic Low Back Pain, DI for Low Back Pain, DI for Genital Herpes Additional Instructions: See Dr. Sheppard (cardiology) tomorrow at 9 a.m. Follow-up with your primary care provider for results of your cultures that were done in the emergency department, for further evaluation of your kidney cyst, and further treatment of your back pain. Call tomorrow to make appointment. Additional instructions for CHEST PAIN: Return immediately if worsening chest pain, vomiting, shortness of breath, fever, coughing of blood. Additional instructions for CONTROLLED SUBSTANCES: You have been prescribed a medication that is a controlled substance. Controlled substances include pain medications known as opiates and sedative nerve medications known as benzodiazepines. Tramadol, fioricet, and gabapentin are also controlled substances. Some common opiates include: Codeine (such as Tylenol #3) Hydrocodone (Vicodin, Lortab, Lorcet, [place]) Oxycodone (Percocet, Percodan, Oxycodone, Oxy IR) Some common benzodiazepines include: Diazepam (Valium) Lorazepam (Ativan) Alprazolam (Xanax) Clonazepam (Klonopin) Oxazepam (Serax) All of these controlled substances are highly addictive and frequently abused. Misuse can and frequently does lead to addiction as well as overdose and . Medication should be stored in a locked cabinet or other secure storage unit. Do not store the medication in a motor vehicle. Short term supplies, 3 days or less, are prescribed because of the highly addictive nature of the medication. Any of the controlled substance medication NOT taken should be disposed of properly and NOT SAVED. The recommended method of disposing of unused medications is: Place the medicines in a sealable plastic bag. If the medicine is a solid, crush it or add water to dissolve it. Add something undesirable (cat litter, coffee grounds, etc.) Dispose of sealed bag in household trash Do not flush or pour unused medicines down a sink or drain. Controlled substances should not be shared, given away or sold. Because of the addictive nature and frequent abuse, these medications are sometimes stolen. These medications should be kept in a safe place where they cannot be stolen. Do not keep them in your car or purse. Lost or stolen prescriptions for controlled substances WILL NOT BE REFILLED in this emergency department, regardless of whether a police report was filed. Prescriptions: Tramadol HCl [Tramadol 50mg Tab] 50 mg PO Q6HP PRN #10 tab PRN Reason: Moderate Pain Transmission Status: Received by [id number] Valacyclovir HCl [Valtrex] 1,000 mg PO BID #14 tab Transmission Status: Pending to [id number] Referrals: Rayshawn Goodwin MD [Primary Care Provider] - Sony Sheppard MD [Staff Physician] - - Critical Care Critical Care Time: No Attestation: On 12/07/20, the high probability of a clinically significant, sudden or life threatening deterioration of the following system(s) required my full and direct attention, intervention and personal management. The time I documented below is in addition to time spent performing reported procedures but includes the following listed in this critical care notation. Medical Decision Making - Miller Inquiry Pt receiving controlled substance: Yes Miller was queried for this patient: Yes Risks and benefits of using a controlled substance: were discussed with pt by me Vital Signs: 12/07/20 09:27 12/07/20 10:01 12/07/20 11:01 Temperature 98 F Temperature Source Oral Pulse Rate 98 H 100 H Pulse Rate [Radial] 10
[2020-12-07 09:56] LABS: Microscopic, Urine URINE MICROSCOPIC (MICROSCOPIC)
[2020-12-07 09:57] LABS: Appearance,Urine CLEAR (Clear); Bilirubin,Urine Negative (Negative); Blood, Urine TRACE-I (Negative); Color,Urine YELLOW (Yellow); Glucose,Urine (UA) 3+ (Negative); Ketones,Urine Negative (Negative); Leukocyte Esterase,Urine Negative (Negative); Nitrate,Urine Negative (Negative); PH,Urine 5.5 (5.0-8.5); Protein,Urine Negative (Negative); Urobilinogen,Urine 0.2 EU/dl (0.2)
[2020-12-07 10:01] VITALS: BP 109/71; PULSE 98; RESP 18; O2SAT 97
[2020-12-07 10:02] LABS: RBC,Urine Occasional #/hpf (0-3); Squamous Epithelial Cell,Urine Occasional #/hpf (0-5)
--- NOTE | 2020-12-07 10:08 | CT_ITS ---
PROCEDURE INFORMATION: Exam: CT Abdomen And Pelvis Without Contrast Exam date and time: 12/07/2020 10:08 AM Age: 55 years old Clinical indication: Localized; Patient HX: Right sided abdominal pain and pain when urinating; Additional info: Passing stones. Gallbladder removed. Appendix removed. Contrast allergy TECHNIQUE: Imaging protocol: Computed tomography of the abdomen and pelvis without contrast. Radiation optimization: All CT scans at this facility use at least one of these dose optimization techniques: automated exposure control; mA and/or kV adjustment per patient size (includes targeted exams where dose is matched to clinical indication); or iterative reconstruction. COMPARISON: US ABDOMEN LIMITED 01/28/2020 9:39 AM FINDINGS: Liver: Fatty infiltration of the liver. Gallbladder and bile ducts: Status post cholecystectomy. Pancreas: Normal. No ductal dilation. Spleen: The spleen is mildly prominent. Adrenal glands: Normal. No mass. Kidneys and ureters: 6.3 cm cyst arising from the midportion of the right kidney which is may have a peripheral solid component on its medial aspect. Stomach and bowel: Unremarkable. No obstruction. No mucosal thickening. Appendix: Provided history of appendectomy. Intraperitoneal space: Unremarkable. No free air. No significant fluid collection. Vasculature: Unremarkable. No abdominal aortic aneurysm. Lymph nodes: Several subcentimeter mesenteric lymph nodes. Urinary bladder: Unremarkable as visualized. Reproductive: Unremarkable as visualized. Bones/joints: Unremarkable. No acute fracture. Soft tissues: Unremarkable. IMPRESSION: 1. 6.3 cm cyst arising from the midportion of the right kidney which is may have a peripheral solid component on its medial aspect. Provided history of contrast allergy and further evaluation with nonemergent MRI is recommended since patient cannot received intravenous contrast according to history. 2. No definite evidence of acute abdominal or pelvic pathology. Remainder of findings as described above. COMMENTS: Consistent with the [employer]'s Incidental Findings Committee white paper (J Am Mikey Radiol 2018): Any incidental renal lesion less than 1 cm or classified as too small to characterize, or any incidental cystic renal lesion characterized as simple-appearing, is likely benign. No follow-up imaging is recommended for these lesions per consensus recommendations based on imaging criteria.
[2020-12-07 10:12] LABS: Basophils # 0.1 K/mm3 (0-0.2); Basophils % 0.8 % (0.1-2.0); Eosinophils # 0.2 K/mm3 (0.0-0.4); Hematocrit 47.3 % (42.0-52.0); Hemoglobin 15.6 g/dL (14.1-18.0); Lymphocytes # 1.4 K/mm3 (0.7-4.5); Lymphocytes % 15.5 % (10-50); Mean Corpuscular HGB Conc 33.1 g/dL (31.8-35.4); Mean Corpuscular Hemoglobin 30.6 pg (27.0-31.2); Mean Corpuscular Volume 92.6 fl (80-94); Mean Platelet Volume 8.6 fl (7.4-10.4); Monocytes # 0.6 K/mm3 (0.1-1.0); Monocytes % 6.8 % (1.7-9.3); Neutrophils # 6.9 K/mm3 (1.8-7.8); Neutrophils % 74.9 % (37.0-80.0); Platelet Count 216 K/mm3 (142-424); Red Blood Count 5.11 M/mm3 (4.60-6.20); Red Cell Distribution Width 14.1 % (11.5-17.5); White Blood Count 9.2 K/mm3 (4.8-10.8)
[2020-12-07 10:18] LABS: Chloride 98 mmol/L (98-107); Potassium 3.8 mmoL/L (3.5-5.1); Sodium 137 mmol/L (136-145)
[2020-12-07 10:21] LABS: Anion Gap 13.8 mEq/L (5-15); Blood Urea Nitrogen 22 mg/dl (9-20); Calcium 9.3 mg/dl (8.4-10.2); Carbon Dioxide 29 mmol/L (22.0-30.0); Creatinine Clearance Estimated 121 mL/min (50-200); Estimated Glomerular Filt Rate 69 ml/min (>60); GFR (African American) 84 ML/MIN (>60); Glucose 185 mg/dl (74-100)
[2020-12-07 10:37] LABS: Troponin I < 0.01 ng/ml (0.00-0.034)
--- NOTE | 2020-12-07 10:47 | PC.NURSE ---
Dr lyons paged
--- NOTE | 2020-12-07 10:48 | PC.NURSE ---
Dr Bustamante speaking with Dr Sheppard
[2020-12-07 11:01] VITALS: BP 104/65; PULSE 100; RESP 18; O2SAT 94
[2020-12-07 11:30] VITALS: BP 116/78; PULSE 88; RESP 20; O2SAT 95
[2020-12-07 12:18] VITALS: BP 109/65; PULSE 98; RESP 16; TEMP 36.6; O2SAT 98
[2020-12-08 08:51] LABS: HSV 1 IgG, Type Spec <0.91 index (0.00-0.90); HSV 2 IgG, Type Spec <0.91 index (0.00-0.90)
[2020-12-08 12:09] LABS: HSV, IgM I/II Combination <0.91 Ratio (0.00-0.90)
[2020-12-09 22:38] LABS: Neisseria gonorrhoeae, NAA Negative (Negative)
== END 2020-12-07 12:19 | disposition home or self-care (01) ==
PROVIDERS: Emergency Provider Emergency Medicine; PCP Emergency Medicine
DX: N28.1 Cyst of kidney, acquired (principal); S30.822A Blister (nonthermal) of penis, initial encounter; I20.8 Other forms of angina pectoris; J45.909 Unspecified asthma, uncomplicated; E11.9 Type 2 diabetes mellitus without complications; I10 Essential (primary) hypertension; E78.5 Hyperlipidemia, unspecified; M54.5 Low back pain; Z79.899 Other long term (current) drug therapy
CPT/HCPCS: 71045; 74176; 80048; 81001; 84484; 85025; 86695; 86790; 87252; 87491; 87591; 93005; 96374; 99283

== ENCOUNTER → 2020-12-11 10:46 | Outpatient (POV) | payer OTHER, SELFPAY ==
[2020-12-11 10:59] VITALS: BP 110/74; PULSE 76; RESP 18; O2SAT 96; BMI 34.5
--- NOTE | 2020-12-11 12:27 | P.CONS_ITS ---
[facility] Pain Management SOAP Note Subjective:: Patient is a 55-year-old white male who presents today for follow-up after an RFA of lumbar spine. Patient says that he got 2 days of relief. He has been treated for degenerative disc disease lumbar spine with lumbar spondylosis and lumbar facet arthropathy. He rates his pain an 8 out of 10 today. He says that the pain is in his low back and bilateral lower extremities. He says that the pain in his legs stops at his knees. He is having a burning sensation to his feet when he is walking. He does report to have a history of neuropathy. Patient says his pain is worse at bedtime, and he does have difficulty with finding a comfortable position at bedtime to sleep pain. Review of Systems General: No recent weight changes, no fever, no sleep disturbances Respiratory: No cough, no shortness of air, no recurring pulmonary infections Cardiovascular/peripheral vascular: No chest pain, no palpitations, no edema, no shortness of breath Gastrointestinal: No new onset incontinence, normal bowel movements reported Genitourinary: No new onset incontinence Musculoskeletal: Low back pain worse with movement Psychiatric: Normal mood/affect Neurological: [Denies weakness in extremities], [denies balance issues] Objective:: Physical exam General: Alert and oriented x3, no acute distress, pleasant and cooperative, [on room air] Lungs: Respirations even and unlabored, symmetrical chest expansion Eyes: PERRL Musculoskeletal: Flexion and extension of lumbar spine somewhat guarded secondary to pain, deep tendon reflexes normal, strength in upper and lower extremities [5/5], [abnormal gait noted] Neurological: Speech clear, information technology officer equal, no gross sensory deficit Assessment:: Degenerative disc disease lumbar spine with lumbar spondylosis and lumbar facet arthropathy Plan:: Patient did not get much relief with his RFA of the lumbar spine. He is having some neuropathic pain. We discussed trying gabapentin 300 g 1 tablet p.o. at bedtime to see if this gives him relief. We will follow-up with him in 2 weeks to see if the medication has worked. If not we will discuss further injective therapy at that time. Risks and benefits of the medication have been explained in detail to the patient. The patient has been advised to consult with his/her primary care provider and pharmacist regarding drug-drug interaction of medications currently prescribed. Patient has been instructed to contact the clinic with any concerns before the next appointment. Dr. Helton has reviewed this note and agrees with this plan of care. This note was dictated using voice recognition software and make contain errors or omissions. [facility] History I have reviewed the patient's past medical history: Yes Medical History: Reports:: Asthma, Diabetes Mellitus Type 2, Hypertension Denies:: Cancer, Diabetes Mellitus Type 1, Internal Pacemaker, MRSA, Seizures *Have you ever received a pneumonia vaccine?: No *Have you received a flu vaccine this season?: No Other Medical History: Reports: Arthritis. Denies: Blood Transfusion Reaction Laterality Cases: Bilateral: Tonsillectomy Other Surgeries: Yes: No Previous Surgery, Appendectomy, Cardiac Catheterization, Cholecystectomy, Colonoscopy. No: Pacemaker Amputation: No Fractures: No - *Social History Smoking Status: Never smoker Alcohol Intake: never Substance Use Type: former substance user, crack/cocaine, heroin *Occupational Status:: unemployed Housing: house Household Members: significant other *Travel in the last 8 weeks: None Family Hx:: Coronary Artery D
== END ==
PROVIDERS: Visit Provider Clinical Nurse Specialist Family Health
DX: M51.36 Other intervertebral disc degeneration, lumbar region (principal); M47.816 Spondylosis without myelopathy or radiculopathy, lumbar region; M54.06 Panniculitis affecting regions of neck and back, lumbar region
CPT/HCPCS: 99212; G0463

== ENCOUNTER → 2020-12-17 11:06 | Outpatient (CLI) | payer OTHER, SELFPAY ==
--- NOTE | 2020-12-17 11:07 | CA_ITS ---
APPROVED REPORT Exam: Pharmacologic Technologist: Rabia Mcclelland, Ht: 5 ft 11 in Wt: 247 lbs BSA: 2.31 m2 HR: 90 bpm BP: 114/80 mmHg Rhythm: NSR,ST-T ABNS INFERIORLY AND LATERALLY Medical History Medical History: HTN, Hyperlipidemia, Diabetic ??? Noninsulin Medications: Atenolol,,,,, Metformin,,,,, TAMSULOSIN,,,,, Tramadol,,,,, ValACYCLOVer,,,,, DulaGLUTIDE,,,,, DApagliflozin,,,,, Lisinopri/HCTZ,,,,, Amlodipine-ATORVASTATIN,,,,, Allergies: IODINE Cardiac Risk Factors: HTN, Hyperlipidemia, Diabetes (non-insulin), FHX of CAD Stress Test Details Test: LEXISCAN HR Resting HR: 91 bpm Max Heart Rate (APMHR): 165.613168 bpm Max HR Achieved: 112 bpm Target HR (85% APMHR): 140.471215 bpm % of APMHR: 67.88 Recovery HR: 108 bpm BP Resting BP: 114.0/80.0 mmHg Max BP: 116.0/64.0 mmHg Recovery BP: 105.0/72.0 mmHg ECG Clinical Exercise duration: 04:01 min Highest Stage Achieved: Exercise capacity: 1.0 METs Stress ECG Conclusion SWITCHED FROM EXERCISE DUE TO LIMITED EXERCISE TOLERANCE.(UNABLE TO COMPLETE STAGE 1 OF GRICEL PROTOCOL. DURING INFUSION PATIENT HAD SOA,TIGHTNESS IN THROAT AND MILD STOMACH DISCOMFORT. NO CP. NO ARRHYTHMIAS/ECTOPY. EXAGGERATION OF BASELINE ST-T ABNS. NON-DIAGNOSTIC LEXISCAN STRESS. MYOVIEW IMAGES REPORTED SEPARATELY Test Summary REST 06:04 . . 91 . 114/ 80 . . Stage 1 . . . . . . . Myoview Injected Stage 1 01:00 . . 110 . . . . Stage 2 01:00 . . 111 . 116/ 64 . . Stage 3 01:00 . . 109 . 113/ 67 . . Stage 4 01:00 . . 106 . 103/ 69 . . Stage 4 01:01 . . 106 . 103/ 69 . Stop exercise at 04:01 RECOVERY 01:00 . . 109 . . . . RECOVERY 02:00 . . 104 . 105/ 72 . . RECOVERY 03:00 . . 105 . 115/ 71 . . RECOVERY 04:00 . . 101 . 115/ 71 . . RECOVERY 05:00 . . 105 . 115/ 71 . . RECOVERY 05:24 . . 102 . 115/ 71 . . Electronically signed by : Cullen Green, 12/18/2020 09:53:29
--- NOTE | 2020-12-17 11:08 | US_ITS ---
APPROVED REPORT Exam Type: Ankle to Brachial Index Manager Audio: Yuriy GARCIA Indications Claudication: Bilaterally Rest Pain: Bilaterally Numbness/Tingling Risk Factors Hypertension Hyperlipidemia Diabetes Pressures/Indices Right Indices Left Indices Brachial 115.00 mmHg Brachial 100.00 mmHg Low Thigh 105.00 mmHg 0.91 Low Thigh 112.00 mmHg 0.97 Calf 98.00 mmHg 0.85 Calf 114.00 mmHg 0.99 Ankle(PT) 118.00 mmHg 1.03 Ankle(PT) 112.00 mmHg 0.97 Ankle(DP) 110.00 mmHg 0.96 Ankle(DP) 101.00 mmHg 0.88 Digit 112.00 mmHg 0.97 Digit 101.00 mmHg 0.88 Findings RT JUAN F=1.0 LT JUAN F=0.97 RT TPI=0.97 LT TPI=0.88 Conclusion RT JUAN F=1.0 LT JUAN F=0.97 RT TPI=0.97 LT TPI=0.88 Electronically signed by : Tanmay Baker MD 12/19/2020 15:22:50
--- NOTE | 2020-12-17 11:08 | CA_ITS ---
APPROVED REPORT EXAM: Comprehensive 2D, Doppler, and color-flow Echocardiogram Knot Picker Cloth: Azra Eller CRT Ht: 5 ft 11 in Wt: 247lbs BSA: 2.31 BP: 102/67 mmHg Indications: Abnormal ECG, Chest Pain, Shortness of Breath, Diabetes, Hyperlipidemia HX of heroin use and cocaine 2D Dimensions LVOT 2.04 cm (M/F) 1.5-2.5 M-Mode Dimensions RVDd 3.11 cm (0.9-2.6) LA Diam 3.78 cm (1.9-4.0) LVDd 4.32 cm (3.5-5.7) Ao Diam 3.72 cm (2.0-3.7) LVDs 2.64 cm (3.5-5.7) IVSd 1.25 cm (0.6-1.1) PWd 1.14 cm (0.6-1.1) EF (Teich) 69.50% FS 38.90% EDV (Teich) 84.00 mL TAPSE 1.12 (<1.7) ESV (Teich) 25.60 mL LV Diastology E Decel Time 143.00 (160-240 msec) E/A Ratio 0.85 MED E' 5.30 (< 7 cm/sec) MED A' 9.70 cm/s E'/MED E' Ratio 9.66 (>14) LAT E' 11.60 (<10 cm/sec) LAT A' 11.10 cm/s E/LAT E' Ratio 4.41 (>14) Aortic Valve AO Peak GR. 4.50 mmHg Mitral Valve MV A Velocity 60.00 (40-130 cm/s) E/A Ratio 0.85 MV Decel. Time 143.00 (160-240 ms) Pulmonary Valve PV Peak Velocity 54.00 (50-150 cm/s) Tricuspid Valve TR P. Velocity 243.00 cm/s RAP Estimate 10.00 mmHg RVSP 33.60 mmHg Left Ventricle Left atrium is mildly enlarged, left ventricle is normal size, mild concentric left ventricular hypertrophy, visually estimated ejection fraction 55% with no regional wall motion abnormality, grade 1 diastolic dysfunction seen without tissue Doppler evidence of raise left atrial pressure. Right Ventricle Right atrium and right ventricle are normal size and contractility. Aortic Valve Aortic valve is minimally thickened and fibrosed, there is no aortic stenosis or aortic insufficiency. Mitral Valve Mitral valve grossly normal, there is trace mitral regurgitation. Tricuspid Valve Tricuspid grossly normal, there is trace tricuspid regurgitation, tricuspid regurgitation jet velocity is inadequate for calculation of the right ventricular systolic pressure. Pulmonic Valve Pulmonic valve is poorly visualized. Great Vessels Aortic root is normal size. Pericardium No significant pericardial effusion noted. Conclusion 1. Mildly enlarged left atrium, normal left ventricular size, mild concentric left ventricular hypertrophy, visually estimated ejection fraction 55% with no regional wall motion abnormality, grade 1 diastolic dysfunction seen without tissue Doppler evidence of raise left atrial pressure. 2. Trace mitral and tricuspid regurgitation. 3. No significant pericardial effusion noted. Electronically signed by : Cullen Green, 12/18/2020 10:51:46
--- NOTE | 2020-12-17 11:59 | NM_ITS ---
APPROVED REPORT Exam: Nuclear Stress Test Indication: HTN, FM HX., C.P., SOB, ABN EKG Patient Location: Outpatient Stress Tech: Rabia Mcclelland [place] Tech:Frieda Yip MARILOUKasia RT (R)(N)(M) Ht: 5 ft 11 in Wt: 248 lbs HR: 90 bpm BP: 114/80 mmHg BSA: 2.31 m2 BMI: 34.5 History: HTN, FM HX., C.P., SOB, ABN EKG Procedure: Patient received a 0.4 mg of intravenous Lexiscan, resting heart rate 90 bpm, resting blood pressure 114/80 mmHg, with Lexiscan maximum heart rate achived was 112 bpm which is Less than 85 % of the maximum predicted heart rate and blood pressure was 116/64 mmHg. With Lexiscan, patient denied any complaint of chest pain. NECK TIGHTNESS Electrocardiogram Resting electrocardiogram showed sinus rhythm nonspecific ST-T changes, with Lexiscan there is less than 1.[address] segment depression noted from the baseline EKG. The EKG portion of the Lexiscan is nondiagnostic. Cardiac Stress and Resting SPECT Images: Cardiac Stress and Resting SPECT images were obtained using technetium 99m Myoview 30.9 mCi stress and 9.99 mCi at rest. Gated SPECT for analysis of segmental wall motion and calculation of the ejection fraction also done. Prone images were also obtained. Cardiac stress and resting SPECT images show uniform myocardial activity without segmental perfusion abnormality, computer derived ejection fraction is 68% with no regional wall motion abnormality, right ventricle is normal size and contractility. Conclusion: 1. The EKG portion of the Lexiscan is nondiagnostic. 2. No scintigraphic evidence of reversible ischemia seen, computer derived ejection fraction is 68% with no regional wall motion abnormality, right ventricle is normal size and contractility. 3. Normal Lexiscan Myoview study. Electronically signed by : Cullen Green, 12/18/2020 10:03:52
== END ==
PROVIDERS: PCP Emergency Medicine; Visit Provider Urology
DX: R07.9 Chest pain, unspecified (principal); R06.00 Dyspnea, unspecified; R06.01 Orthopnea; R42 Dizziness and giddiness; R94.31 Abnormal electrocardiogram [ECG] [EKG]; M79.606 Pain in leg, unspecified; R06.83 Snoring; R40.0 Somnolence
CPT/HCPCS: 78452; 93017; 93306; 93923; 95806; A9502; J2785

== ENCOUNTER → 2020-12-24 09:18 | Outpatient (CLI) | payer OTHER, SELFPAY | PROVIDERS: PCP Emergency Medicine; Visit Provider Urology | DX: R06.00 Dyspnea, unspecified (principal); R06.01 Orthopnea; I51.89 Other ill-defined heart diseases | CPT/HCPCS: 93270 ==

== ENCOUNTER → 2020-12-25 11:03 | Outpatient (POV) | payer OTHER, SELFPAY ==
[2020-12-25 11:09] VITALS: BP 116/73; PULSE 112; RESP 18; O2SAT 96; BMI 34.5
--- NOTE | 2020-12-25 12:30 | HMH.PAINSOAP ---
[facility] Pain Management SOAP Note Subjective:: Patient is a pleasant 55-year-old white male who presents today for follow-up. The patient is being treated in the clinic for degenerative disc disease lumbar spine with facet arthropathy and lumbar spondylosis. The patient has undergone lumbar epidural steroid injections as well as medial branch blocks and RFA. He continues to have pain in his low back and into his bilateral legs. The pain is in his legs stopping at the knees. He is also having severe burning sensation in his feet when he is walking. Patient was started on gabapentin at his last visit, however, he says the medication only helped him sleep. He does not feel that he got much relief with the medicine. He is not interested in surgery. He is also not considered a neurosurgical candidate. He has tried and failed conservative therapies of physical therapy for more than 6 weeks along with continued home stretching. He is also tried anti-inflammatories with no significant relief. Patient was recently started on isosorbide for chest pain. He is currently wearing a monitor worker for evaluation. He says that his pain has gotten progressively worse. He is continuing to use ice and heat therapies as well. He does rate his pain an 8 out of 10 today. Review of Systems General: No recent weight changes, no fever, no sleep disturbances Respiratory: No cough, no shortness of air, no recurring pulmonary infections Cardiovascular/peripheral vascular: No chest pain, no palpitations, no edema, no shortness of breath Gastrointestinal: No new onset incontinence, normal bowel movements reported Genitourinary: No new onset incontinence Musculoskeletal: Low back pain with radiation into bilateral legs, stopping at knees. Severe burning to bilateral feet Psychiatric: Normal mood/affect Neurological: Weakness in lower extremities Objective:: Physical exam General: Alert and oriented x3, no acute distress, pleasant and cooperative, [on room air] Lungs: Respirations even and unlabored, symmetrical chest expansion Eyes: PERRL Musculoskeletal: Flexion and extension of [] lumbar spine somewhat guarded secondary to pain, deep tendon reflexes normal, strength in upper and lower extremities [5/5], [abnormal gait noted] Neurological: Speech clear, physiological chemist equal, no gross sensory deficit Assessment:: Degenerative disc disease lumbar spine with lumbar radiculopathy symptoms, facet arthropathy and lumbar spondylosis Plan:: Patient has exhausted conservative measures in the clinic with physical therapy, injective therapy, and oral medications. He was unable to tolerate gabapentin. We discussed trying Lyrica 75 mg 1 tablet p.o. twice daily for his bilateral foot burning. Given his conservative therapies and failed attempts, we did discuss spinal cord stimulation today. He is interested in this. We will set him up for psychological evaluation for possible spinal cord stimulation. We will see him back in the clinic afterwards to discuss his psychological evaluation. If the patient is unable to tolerate Lyrica, he will contact the clinic. Risks and benefits of the medication have been explained in detail to the patient. The patient has been advised to consult with his/her primary care provider and pharmacist regarding drug-drug interaction of medications currently prescribed. Patient has been instructed to contact the clinic with any concerns before the next appointment. Dr. Helton has reviewed this note and agrees with this plan of care. This note was dictated using voice recognition software and make contain errors or omissions. [facility] History I have reviewed the patient's past medical history: Yes Medical History: Reports:: Asthma, Diabetes Mellitus Type 2, Hypertension Denies:: Cancer, Diabetes Mellitus Type 1, Internal Pacemaker, MRSA, Seizures *Have you ever received a pneumonia vaccine?: No *Have you received a flu vaccine this season?: No
== END ==
PROVIDERS: Visit Provider Clinical Nurse Specialist Family Health
DX: M51.16 Intervertebral disc disorders with radiculopathy, lumbar region (principal); M54.06 Panniculitis affecting regions of neck and back, lumbar region; M47.896 Other spondylosis, lumbar region
CPT/HCPCS: 99212; G0463

== ENCOUNTER → 2021-01-30 12:41 | Outpatient (CLI) | payer OTHER, SELFPAY ==
--- NOTE | 2021-01-30 12:52 | US_ITS ---
PROCEDURE: US KIDNEY CLINICAL INDICATION: N28.1 - Cyst of kidney, acquired COMPARISON: CT CT ABDOMEN PELVIS WO CON from 12/07/2020 FINDINGS: The right kidney is 11 x 5 x 6 cm. There is a benign-appearing 5 x 5 cm cyst in the mid to lower pole anteriorly. No solid component or septation evident. The left kidney is 11 x 5 x 5 cm.No hydronephrosis, cortical thinning, or renal mass or perinephric fluid collection is evident. IMPRESSION: Benign-appearing 5 cm right renal cyst otherwise negative bilateral renal ultrasound Dictated by: Stewart Jordan MD 01/30/2021 18:37 Stewart Jordan MD in [place] 01/30/2021 18:37
== END ==
PROVIDERS: PCP Emergency Medicine; Visit Provider Urology
DX: N28.1 Cyst of kidney, acquired (principal)
CPT/HCPCS: 76770

== ENCOUNTER → 2021-02-10 20:06 | Outpatient (CLI) | payer OTHER, SELFPAY | PROVIDERS: PCP Emergency Medicine; Visit Provider Nurse Practitioner Family | DX: G47.33 Obstructive sleep apnea (adult) (pediatric) (principal); I10 Essential (primary) hypertension; R40.0 Somnolence; R06.83 Snoring | CPT/HCPCS: 95810 ==

== ENCOUNTER 2021-04-04 11:33 | Emergency (ER) | payer OTHER, SELFPAY ==
[2021-04-04 12:15] VITALS: BP 138/91; PULSE 88; RESP 19; TEMP 37.1; O2SAT 97; BMI 35.4
--- NOTE | 2021-04-04 12:37 | XR_ITS ---
PROCEDURE INFORMATION: Exam: XR Left Wrist Exam date and time: 04/04/2021 12:37 PM Age: 55 years old Clinical indication: Left; Patient HX: Patient fell pain in wrist; Additional info: Fall TECHNIQUE: Imaging protocol: XR Left wrist. Views: 3 or more views. COMPARISON: No relevant prior studies available. FINDINGS: Bones/joints: There is no evidence of acute fracture.There is no evidence of malalignment or dislocation. Soft tissues: Normal. IMPRESSION: There is no evidence of acute fracture.There is no evidence of malalignment or dislocation.
--- NOTE | 2021-04-04 12:54 | HMH.EDUTC ---
[facility] [place] Impression: Rash, Cough Left wrist sprain Qualifiers: Encounter type: initial encounter Qualified Code(s): S63.502A - Unspecified sprain of left wrist, initial encounter Disposition: Home, Self-Care Condition on Discharge: Good Instructions: Wrist Sprain, Cough, COVID-19: Testing and Tracing Additional Instructions: covid swab was sent to lab, call later today for results. self isolate until test results are known to be negative No sign of a bacterial infection. Likely viral. Viruses can take 7-14 days to run their course. Nasal saline and bulb syringe or nose Cely to remove nasal drainage to help with nasal congestion. Hard to eat, drink, sleep with nasal congestion so important to keep this cleaned out. Monitor temp. Tylenol or Motrin as needed for pain or fever Encourage fluids, water, Gatorade, Powerade, Pedialyte if infant/toddler/child Warm salt water gargles Warm fluids Sore throat lozenges Sleep elevated Humidifier/vaporizer Follow-up immediately for new or worsening symptoms or no noticeable improvement over the next 48-72 hours. monitor glucose close while on steroids sprain- rest Ice with cold pack for 20 minutes remove may repeat for comfort every hour splint for support and swelling no less in the shower. Be sure not too tight but not to lose either Elevate with arm above your heart as much as possible to help reduce swelling and therefore pain Ibuprofen every 6 hours as needed for pain or inflammation. If needs something more you can take Tylenol every 4 hours as needed as long as her primary care has told he was okayed for you to take both. Follow-up immediately if new or worsening symptoms or no noticeable improvement over the next 3-5 days. call ortho Prescriptions: predniSONE [Prednisone 20mg Tab] 20 mg PO BID #10 tab Transmission Status: Pending to [id number] Referrals: Rowan Chan, DERRICK [Primary Care Provider] - Time of Disposition: 13:14 Medical Decision Making - Miller Inquiry Pt receiving controlled substance: No Vital Signs: 04/04/21 12:15 Temperature 98.7 F Temperature Source Oral Pulse Rate [Right Brachial] 88 Respiratory Rate 19 Blood Pressure [Right Arm] 138/91 H Blood Pressure Mean [Right Arm] 106 Blood Pressure Source [Right Arm] Automatic Cuff Blood Pressure Position [Right Arm] Sitting 02 Sat by Pulse Oximetry 97 Oxygen Delivery Method Room Air Orders (Tests/Meds): ORDERS Category Date Time Status XR wrist LT min 3V Stat Exams 04/04/21 12:37 Taken XR wrist RT min 3V Stat Exams 04/04/21 12:21 Stop Req Covid-19 Nasal PCR ([facility]) Routine Lab 04/04/21 13:00 Ordered [facility] UTC HPI - General Chief complaint: Urgent Treatment Center Stated complaint: Pain left wrist,rash,cough SOB Time Seen by Provider: 04/04/21 12:54 Mode of Arrival: Ambulatory Source of Information: Patient Limitations: No Limitations Description of Symptoms (Recalled from Triage Doc. by RN): PATIENT C/O SOA, COUGH, AND RASH ON FACE. ALSO C/O LEFT WRIST PAIN AFTER FALLING AT WORK YESTERDAY HEENT Symptoms (Recalled from RN notes): No Resp Symptoms (Recalled from RN notes): No Skin Symptoms (Recalled from RN notes): No MS Symptoms (Recalled from RN notes): No Functional Status (Recalled from RN notes): WNL - History of Present Illness Provider Complaint: 55 yr old male presents for soa,cough, and rash to both cheeks. pt states he also has pain in left wrist from a fall yesterday at work. pt states he caught himself with his wrist. - Related Data Home Medications Medication Instructions Recorded Confirmed Dulaglutide [Trulicity] 1.5 mg SQ WEEKLY 12/07/20 02/18/21 Lisinopril/Hydrochlorothiazide 1 tab PO DAILY 12/07/20 02/18/21 [Lisinopril-Hctz 20-12.5 mg Tab*] Tamsulosin HCl 0.4 mg PO HS 12/07/20 02/18/21 metformin 1,000 mg tablet 1,000 mg PO BID tab 01/07/21 02/18/21 amlodipine 5 mg tablet 5 mg PO DAILY tab 02/18/21 02/18/21 dapagliflozin
[2021-04-04 13:15] VITALS: BP 138/91; PULSE 88; RESP 19; TEMP 37.1; O2SAT 97
== END 2021-04-04 13:23 | disposition home or self-care (01) ==
PROVIDERS: Emergency Provider Nurse Practitioner Family
DX: S63.502A Unspecified sprain of left wrist, initial encounter (principal); W01.0XXA Fall on same level from slipping, tripping and stumbling without subsequent striking against object, initial encounter; Y92.89 Other specified places as the place of occurrence of the external cause; I10 Essential (primary) hypertension; E11.9 Type 2 diabetes mellitus without complications; Z20.822 Contact with and (suspected) exposure to COVID-19
CPT/HCPCS: 29125; 73110; 99203; C9803; G0463; U0003; U0005

== ENCOUNTER 2021-06-21 19:45 | Emergency (ER) | payer BC, SELFPAY ==
[2021-06-21 20:09] VITALS: BP 171/103; PULSE 94; RESP 18; TEMP 36.8; O2SAT 96; BMI 75.9
--- NOTE | 2021-06-21 20:17 | HMH.EDUTC ---
[facility] [place] Clinical Impression: Facet arthropathy Low back pain Qualifiers: Chronicity: unspecified Back pain laterality: bilateral Sciatica presence: without sciatica Qualified Code(s): M54.50 - Low back pain, unspecified Degenerative joint disease (DJD) of lumbar spine Qualifiers: Spinal osteoarthritis complication: unspecified spinal osteoarthritis Qualified Code(s): M47.816 - Spondylosis without myelopathy or radiculopathy, lumbar region Disposition: Home, Self-Care Condition on Discharge: Good Instructions: Low Back Pain, DI for Low Back Pain Additional Instructions: Go home and rest. It would be best if you rested tomorrow too. No heavy lifting. No twisting. Take the oral medications as directed. The muscle relaxer (cyclobenzaprine--Flexeril) will make you drowsy, so don't drive or operate heavy machinery after taking it. Don't start the oral steroids (medrol dose pack) until tomorrow, since you had the shots in here today. Follow up with your regular doctor. GO TO THE ER FOR ANY WORSENING SYMPTOMS OR CONCERN, ESPECIALLY BOWEL OR BLADDER ISSUES, SADDLE AREA NUMBNESS, FEVER, ETC Prescriptions: Cyclobenzaprine HCl [Flexeril 10mg tablet] 10 mg PO BIDP PRN #30 tab PRN Reason: Muscle Spasm Transmission Status: [facility] by [id number] methylPREDNISolone [Medrol] 4 mg PO DIRECTED 6 Days #21 packet Transmission Status: Received by [id number] Referrals: Rayshawn Goodwin MD [Primary Care Provider] - Forms: Work/School Release Time of Disposition: 20:36 Medical Decision Making - Medical Records Medical records reviewed: No: I reviewed the patient's medical records. - Miller Inquiry Pt receiving controlled substance: No Vital Signs: 06/21/21 20:09 06/21/21 20:45 Temperature 98.2 F 98.2 F Temperature Source Oral Pulse Rate 87 Pulse Rate [Left] 94 H Respiratory Rate 18 18 Blood Pressure 153/102 H Blood Pressure [Right Arm] 171/103 H Blood Pressure Mean [Right Arm] 125 02 Sat by Pulse Oximetry 96 Orders (Tests/Meds): ED MEDICATIONS Discontinued Medications Generic Name Dose Route Start Last Admin Trade Name Freq PRN Reason Stop Dose Admin Ketorolac Tromethamine 60 mg 06/21/21 20:32 06/21/21 20:44 Ketorolac 60mg/2ml Vial IM 06/21/21 20:33 60 mg ONCE ONE Administration Methylprednisolone Sodium Succinate 125 mg 06/21/21 20:32 06/21/21 20:44 Methylprednisolone Sod Succ 125mg Vial IM 06/21/21 20:33 125 mg ONCE ONE Administration [facility] [place] - General Stated complaint: back pain no accident Time Seen by Provider: 06/21/21 20:17 Mode of Arrival: Ambulatory Source of Information: Patient Limitations: No Limitations Description of Symptoms (Recalled from Triage Doc. by RN): pt c/o of back pain and a CRENSHAW. pt states he has a buldging disc in his lower back and arthritis. however, pt is trying to avoid having surgery. HEENT Symptoms (Recalled from RN notes): Yes (CRENSHAW) Resp Symptoms (Recalled from RN notes): No Skin Symptoms (Recalled from RN notes): No MS Symptoms (Recalled from RN notes): Yes (lower back pain) Functional Status (Recalled from RN notes): wnl - History of Present Illness Provider Complaint: He c/o chronic low back pain that has worsened over the past several days. He has a history of arthritis in his low back. His job involves a lot of lifting heavy things. He denies any recent falls of injuries. He denies any bowel or bladder issues. - Related Data Home Medications Medication Instructions Recorded Confirmed Dulaglutide [Trulicity] 1.5 mg SQ WEEKLY 12/07/20 02/18/21 Lisinopril/Hydrochlorothiazide 1 tab PO DAILY 12/07/20 02/18/21 [Lisinopril-Hctz 20-12.5 mg Tab*] Tamsulosin HCl 0.4 mg PO HS 12/07/20 02/18/21 metformin 1,000 mg tablet 1,000 mg PO BID tab 01/07/21 02/18/21 amlodipine 5 mg tablet 5 mg PO DAILY tab 02/18/21 02/18/21 dapagliflozin 10 mg tablet 10 mg PO DAILY tab 02/18/21 02/18/21
[2021-06-21 20:45] VITALS: BP 153/102; PULSE 87; RESP 18; TEMP 36.8
== END 2021-06-21 21:09 | disposition home or self-care (01) ==
PROVIDERS: Emergency Provider Nurse Practitioner Family; PCP Emergency Medicine
DX: M47.816 Spondylosis without myelopathy or radiculopathy, lumbar region (principal); M54.50 Low back pain, unspecified; E11.9 Type 2 diabetes mellitus without complications; I10 Essential (primary) hypertension; J45.909 Unspecified asthma, uncomplicated; Z79.899 Other long term (current) drug therapy
CPT/HCPCS: 96372; 99202; G0463

== ENCOUNTER 2021-11-02 20:17 | Observation (INO) | payer BC, SELFPAY ==
[2021-11-02 20:18] VITALS: BP 133/97; PULSE 91; RESP 18; TEMP 36.6; O2SAT 97; BMI 32.2
--- NOTE | 2021-11-02 20:25 | ECG_ITS ---
APPROVED REPORT Exam: Resting ECG HR:90 bpm ECG Measurements Heart Rate 90 AXES SD 147 P 58 QRSd 98 QRS 57 QT 360 T 42 QTc 408 Conclusion SINUS RHYTHM POSSIBLE LEFT ATRIAL ENLARGEMENT [-0.1mV P-WAVE IN V1/V2] NONSPECIFIC T-WAVE ABNORMALITY BORDERLINE ECG UNCONFIRMED REPORT Electronically signed by : Sony Rucker MD 11/04/2021 17:57:37
--- NOTE | 2021-11-02 20:26 | CT_ITS ---
PROCEDURE INFORMATION: Exam: CT Angiography Neck With Contrast Exam date and time: 11/02/2021 9:03 PM Age: 56 years old Clinical indication: Weakness; Additional info: Left arm weakness TECHNIQUE: Imaging protocol: Computed tomography angiography of the neck with contrast. 3D rendering (Not supervised by radiologist): MIP and/or 3D reconstructed images were created by the technologist. Radiation optimization: All CT scans at this facility use at least one of these dose optimization techniques: automated exposure control; mA and/or kV adjustment per patient size (includes targeted exams where dose is matched to clinical indication); or iterative reconstruction. Contrast material: ISOVUE; Contrast volume: 100 ml; Contrast route: INTRAVENOUS (IV); COMPARISON: CT HEAD/BRAIN WO CON 11/02/2021 9:00 PM FINDINGS: Right common carotid artery: No stenosis. No dissection or occlusion. Right internal carotid artery: Minimal atheromatous calcification of the right carotid bulb. No stenosis of the extracranial segment. No dissection or occlusion. Right external carotid artery: No occlusion or stenosis of the origin. Left common carotid artery: No stenosis. No dissection or occlusion. Left internal carotid artery: Minimal atheromatous calcification of the left carotid bulb. No stenosis of the extracranial segment. No dissection or occlusion. Left external carotid artery: No occlusion or stenosis of the origin. Right vertebral artery: Prominent tortuosity which may be secondary to chronic systolic hypertension. The right vertebral artery is dominant. No stenosis. No dissection or occlusion. Left vertebral artery: No stenosis. No dissection or occlusion. Soft tissues: Normal. No significant soft tissue swelling. Bones/joints: There are degenerative changes noted within the cervical spine. IMPRESSION: 1. No stenosis or occlusion. 2. Prominent tortuosity of the right vertebral artery. This could be on the basis of chronic systolic hypertension. REFERENCES: NASCET CRITERIA. The degree of internal carotid artery stenosis is based on NASCET criteria. Normal is no stenosis. Mild is less than 50% stenosis. Moderate is 50-69% stenosis. Severe is 70% to 99% stenosis. Total occlusion is no detectable patent lumen.
--- NOTE | 2021-11-02 20:26 | CT_ITS ---
PROCEDURE INFORMATION: Exam: CT Angiography Head With Contrast, Arteriography Exam date and time: 11/02/2021 9:03 PM Age: 56 years old Clinical indication: Weakness; Additional info: Left arm weakness TECHNIQUE: Imaging protocol: Computed tomography angiography of the head with contrast. Exam focused on the arteries. 3D rendering (Not supervised by radiologist): MIP and/or 3D reconstructed images were created by the technologist. Radiation optimization: All CT scans at this facility use at least one of these dose optimization techniques: automated exposure control; mA and/or kV adjustment per patient size (includes targeted exams where dose is matched to clinical indication); or iterative reconstruction. Contrast material: ISOVUE; Contrast volume: 100 ml; Contrast route: INTRAVENOUS (IV); COMPARISON: CT HEAD/BRAIN WO CON 11/02/2021 9:00 PM FINDINGS: ANTERIOR CIRCULATION: Right internal carotid artery: Unremarkable. Intracranial segment is patent with no significant stenosis. No aneurysm. Right middle cerebral artery: Unremarkable. No occlusion or significant stenosis. No aneurysm. Right anterior cerebral artery: Mildly hypoplastic. No occlusion or significant stenosis. No aneurysm. A2 segments are symmetrical. Left internal carotid artery: Unremarkable. Intracranial segment is patent with no significant stenosis. No aneurysm. Left middle cerebral artery: Unremarkable. No occlusion or significant stenosis. No aneurysm. Left anterior cerebral artery: The left anterior cerebral artery is dominant. No occlusion or significant stenosis. No aneurysm. A2 segments are symmetrical. POSTERIOR CIRCULATION: Right vertebral artery: Tortuous course. No occlusion or significant stenosis. No aneurysm. Left vertebral artery: Unremarkable. No occlusion or significant stenosis. No aneurysm. Basilar artery: Unremarkable. No occlusion or significant stenosis. No aneurysm. Right posterior cerebral artery: Unremarkable. No occlusion or significant stenosis. No aneurysm. Left posterior cerebral artery: Unremarkable. No occlusion or significant stenosis. No aneurysm. Brain: No definite mass, mass effect, or midline shift. Cerebral ventricles: No ventriculomegaly. Bones/joints: Unremarkable. No acute fracture. Soft tissues: Unremarkable. IMPRESSION: No large vessel stenosis or occlusion.
--- NOTE | 2021-11-02 20:26 | CT_ITS ---
PROCEDURE INFORMATION: Exam: CT Head Without Contrast Exam date and time: 11/02/2021 9:00 PM Age: 56 years old Clinical indication: Weakness, extremity; Left; Additional info: Left arm weakness TECHNIQUE: Imaging protocol: Computed tomography of the head without contrast. Radiation optimization: All CT scans at this facility use at least one of these dose optimization techniques: automated exposure control; mA and/or kV adjustment per patient size (includes targeted exams where dose is matched to clinical indication); or iterative reconstruction. Other technique: STROKE PROTOCOL was implemented. COMPARISON: No relevant prior studies available. FINDINGS: Brain: Normal. No hemorrhage. Unremarkable white matter. No mass effect. Cerebral ventricles: No ventriculomegaly. Paranasal sinuses: There is a 9 mm benign retention cyst lateral aspect left sphenoidal sinus. Visualized sinuses are otherwise unremarkable. No fluid levels. Mastoid air cells: Visualized mastoid air cells are well aerated. Vasculature: Intracranial artery density is normal. Bones/joints: Unremarkable. No acute fracture. Soft tissues: Unremarkable. IMPRESSION: No acute intracranial abnormality. ASSESSMENT: ASPECTS ([place] Stroke Program Early CT Score) is 10.
--- NOTE | 2021-11-02 20:27 | HMH.EDGENADL ---
ED Disposition Clinical Impression: TIA (transient ischemic attack), Left hand weakness Disposition: Admitted as Observation Condition on Discharge: Good Time of Disposition: 23:28 - Critical Care Critical Care Time: No Attestation: On 11/02/21, the high probability of a clinically significant, sudden or life threatening deterioration of the following system(s) required my full and direct attention, intervention and personal management. The time I documented below is in addition to time spent performing reported procedures but includes the following listed in this critical care notation. Medical Decision Making - Medical Records Medical records reviewed: Yes: I reviewed the patient's medical records. - Miller Inquiry Pt receiving controlled substance: No Vital Signs: 11/02/21 20:18 11/02/21 20:35 11/02/21 21:30 Temperature 97.8 F Temperature Source Oral Pulse Rate 96 H 86 Pulse Rate [Right] 91 H Respiratory Rate 18 Blood Pressure 139/97 H 152/100 H Blood Pressure [Right Arm] 133/97 H Blood Pressure Mean [Right Arm] 109 Blood Pressure Source [Right Arm] Automatic Cuff 02 Sat by Pulse Oximetry 97 97 98 Oxygen Delivery Method Room Air Room Air Room Air 11/02/21 22:00 11/02/21 22:30 11/02/21 23:00 Temperature Temperature Source Pulse Rate 83 83 81 Pulse Rate [Right] Respiratory Rate Blood Pressure 141/97 H 141/100 H 136/98 H Blood Pressure [Right Arm] Blood Pressure Mean [Right Arm] Blood Pressure Source [Right Arm] 02 Sat by Pulse Oximetry 94 L 96 96 Oxygen Delivery Method Room Air Room Air Room Air - Lab Data Lab Results 11/02/21 20:35: WBC 9.0, RBC 5.11, Hgb 16.2, Hct 49.5, MCV 96.8 H, MCH 31.7 H, MCHC 32.8, RDW 13.8, Plt Count 250, MPV 9.1, Neut % (Auto) 72.5, Lymph % (Auto) 20.1, [place] % (Auto) 5.4, Eos % (Auto) 1.0, Baso % (Auto) 1.1, Neut # (Auto) 6.5, Lymph # (Auto) 1.8, [place] # (Auto) 0.5, Eos # (Auto) 0.1, Baso # (Auto) 0.1 11/02/21 20:35: PT 10.6, INR 0.93, APTT 27.5 11/02/21 20:35: Sodium 137, Potassium 3.7, Chloride 104, Carbon Dioxide 28, Anion Gap 8.7, BUN 25 H, Creatinine 0.90, Estimated Creat Clear 136, Estimated GFR 87, Est GFR ( Amer) 106, Glucose 221 H, Calcium 8.9, Total Bilirubin 0.4, AST 39, ALT 36, Alkaline Phosphatase 99, Troponin I < 0.01, Total Protein 6.9, Albumin 3.9, Globulin 3.0, Albumin/Globulin Ratio 1.3 Result diagrams: 11/02/21 20:35 11/02/21 20:35 Orders (Tests/Meds): ED MEDICATIONS Discontinued Medications Generic Name Dose Route Start Last Admin Trade Name Freq PRN Reason Stop Dose Admin Aspirin 325 mg 11/02/21 22:03 11/02/21 22:16 Aspirin 325mg Tablet PO 11/02/21 22:04 325 mg ONCE ONE Administration Diphenhydramine HCl 25 mg 11/02/21 20:36 11/02/21 20:41 Diphenhydramine 50mg/Ml Vial IV 11/02/21 20:37 25 mg ONCE ONE Administration Iopamidol 100 ml 11/02/21 21:09 11/02/21 21:10 Iopamidol-370 (76%);100ml Bottle IV 11/02/21 21:10 100 ml ONCE ONE Administration Methylprednisolone Sodium Succinate 125 mg 11/02/21 20:36 11/02/21 20:41 Methylprednisolone Sod Succ 125mg Vial IV 11/02/21 20:37 125 mg ONCE ONE Administration Ondansetron HCl 4 mg 11/02/21 20:36 11/02/21 20:41 Ondansetron 4mg/2ml Vial IV 11/02/21 20:37 4 mg ONCE ONE Administration Sodium Chloride 50 ml 11/02/21 21:09 11/02/21 21:10 0.9 % Sodium Chloride 50 Ml Vial IV 11/02/21 21:10 50 ml ONCE ONE Administration Sodium Chloride 10 ml 11/02/21 21:09 11/02/21 21:11 Sodium Chloride 0.9% 10ml Syr (Rad Only) IV 11/02/21 21:10 10 ml ONCE ONE Administration ORDERS Category Date Time Status Rapid PCR Covid and Flu A/B Stat Lab 11/02/21 23:05 Received Troponin I Q3H Lab 11/02/21 23:10 Received Troponin I Q3H Lab 11/03/21 02:30 Ordered - ECG Data Tracing #1 Sinus rhythm with ventricular rate of 90 bpm. QRS 98, QTc 408. ST segment flattening in the infe
[2021-11-02 20:35] VITALS: BP 139/97; PULSE 96; O2SAT 97
[2021-11-02 20:52] LABS: Chloride 104 mmol/L (98-107); Potassium 3.7 mmoL/L (3.5-5.1); Sodium 137 mmol/L (136-145)
[2021-11-02 20:54] LABS: Blood Urea Nitrogen 25 mg/dl (9-20)
[2021-11-02 20:55] LABS: Activated Partial Thrombo Time 27.5 seconds (22.8-30.6); Alanine Aminotransferase 36 U/L (12-78); Albumin Level 3.9 g/dl (3.5-5.0); Albumin/Globulin Ratio 1.3 (1.1-1.8); Alkaline Phosphatase 99 U/L (38-126); Anion Gap 8.7 mEq/L (5-15); Aspartate Amino Transferase 39 U/L (17-59); Bilirubin,Total 0.4 mg/dl (0.2-1.3); Calcium 8.9 mg/dl (8.4-10.2); Carbon Dioxide 28 mmol/L (22.0-30.0); Creatinine Clearance Estimated 136 mL/min (50-200); Estimated Glomerular Filt Rate 87 ml/min (>60); GFR (African American) 106 ML/MIN (>60); Glucose 221 mg/dl (74-100); INR 0.93 (0.9-1.1); Prothrombin Time 10.6 seconds (10.1-12.5); Total Protein,Serum 6.9 g/dl (6.3-8.2)
[2021-11-02 20:57] LABS: Basophils # 0.1 K/mm3 (0-0.2); Basophils % 1.1 % (0.1-2.0); Eosinophils # 0.1 K/mm3 (0.0-0.4); Hematocrit 49.5 % (42.0-52.0); Hemoglobin 16.2 g/dL (14.1-18.0); Lymphocytes # 1.8 K/mm3 (0.7-4.5); Lymphocytes % 20.1 % (10-50); Mean Corpuscular HGB Conc 32.8 g/dL (31.8-35.4); Mean Corpuscular Hemoglobin 31.7 pg (27.0-31.2); Mean Corpuscular Volume 96.8 fl (80-94); Mean Platelet Volume 9.1 fl (7.4-10.4); Monocytes # 0.5 K/mm3 (0.1-1.0); Monocytes % 5.4 % (1.7-9.3); Neutrophils # 6.5 K/mm3 (1.8-7.8); Neutrophils % 72.5 % (37.0-80.0); Platelet Count 250 K/mm3 (142-424); Red Blood Count 5.11 M/mm3 (4.60-6.20); Red Cell Distribution Width 13.8 % (11.5-17.5)
[2021-11-02 21:08] LABS: Troponin I < 0.01 ng/ml (0.00-0.034)
--- NOTE | 2021-11-02 21:28 | PC.NURSE ---
Dr. Lowery s/w [facility].
[2021-11-02 21:30] VITALS: BP 152/100; PULSE 86; O2SAT 98
[2021-11-02 22:00] VITALS: BP 141/97; PULSE 83; O2SAT 94
[2021-11-02 22:30] VITALS: BP 141/100; PULSE 83; O2SAT 96
[2021-11-02 23:00] VITALS: BP 136/98; PULSE 81; O2SAT 96
--- NOTE | 2021-11-02 23:04 | PC.NURSE ---
Dr. Lowery s/w Dr. Goff for poss admission
[2021-11-02 23:17] LABS: Coronavirus 19, PCR Not Detected (NotDetected); Influenza A, PCR Not Detected (NotDetected); Influenza B, PCR Not Detected (NotDetected)
[2021-11-02 23:19] VITALS: BMI 33.3
[2021-11-02 23:37] LABS: Troponin I < 0.01 ng/ml (0.00-0.034)
[2021-11-03] VITALS (8 sets, daily range): BP systolic 132–152; BP diastolic 80–98; PULSE 81–100; RESP 14–19; TEMP 36.5–37.1; O2SAT 95–98; BMI 33.3
--- NOTE | 2021-11-03 00:06 | PC.NURSE ---
PT ARRIVED TO THE FLOOR AT THIS TIME VIA WHEELCHAIR
[2021-11-03 06:09] LABS: POC Glucose,Bedside 261 (70-110)
--- NOTE | 2021-11-03 07:15 | HMH.PHAVTE ---
[facility] Pharmacy VTE Monitoring - Patient Demographics Admission date: 11/03/21 Report Date: 11/03/21 Time: 07:17 Allergies/Adverse Reactions: Patient Allergies Iodinated Contrast Media Allergy (Verified 02/18/21 08:11) Vomiting oxybutynin Allergy (Verified 02/18/21 08:11) Hives Height: 1.8 m Weight: 108.1 kg Patient Problems: Current Active Problems TIA (transient ischemic attack) (Acute) Left hand weakness (Acute) - VTE Risk Labs: VTE Related Lab Results Hgb 16.2 g/dL (14.1-18.0) 11/02/21 20:35 Hct 49.5 % (42.0-52.0) 11/02/21 20:35 Plt Count 250 K/mm3 (142-424) 11/02/21 20:35 PT 10.6 seconds (10.1-12.5) 11/02/21 20:35 INR 0.93 (0.9-1.1) 11/02/21 20:35 APTT 27.5 seconds (22.8-30.6) 11/02/21 20:35 BUN 25 mg/dl (9-20) H 11/02/21 20:35 Creatinine 0.90 mg/dl (0.66-1.25) 11/02/21 20:35 Estimated Creat Clear 136 mL/min (50-200) 11/02/21 20:35 Was VTE Risk Assessment Performed: Yes VTE Score: 3 VTE Risk Level: Low Risk Clinical Trial Participant: No - Prophylaxis VTE Prophylaxis Ordered?: Yes Types of VTE Prophylaxis: TEDS Knee High
[2021-11-03 07:40] LABS: Basophils % 0.1 % (0.1-2.0); Eosinophils # 0.1 K/mm3 (0.0-0.4); Eosinophils % 0.4 % (0.1-12.0); Hematocrit 49.6 % (42.0-52.0); Hemoglobin 16.6 g/dL (14.1-18.0); Lymphocytes # 0.9 K/mm3 (0.7-4.5); Lymphocytes % 7.2 % (10-50); Mean Corpuscular HGB Conc 33.4 g/dL (31.8-35.4); Mean Corpuscular Hemoglobin 32.5 pg (27.0-31.2); Mean Corpuscular Volume 97.3 fl (80-94); Mean Platelet Volume 9.1 fl (7.4-10.4); Monocytes # 0.2 K/mm3 (0.1-1.0); Monocytes % 1.7 % (1.7-9.3); Neutrophils # 11.1 K/mm3 (1.8-7.8); Neutrophils % 90.5 % (37.0-80.0); Platelet Count 274 K/mm3 (142-424); Red Cell Distribution Width 13.8 % (11.5-17.5); White Blood Count 12.2 K/mm3 (4.8-10.8)
[2021-11-03 07:41] LABS: Chloride 104 mmol/L (98-107); Potassium 3.8 mmoL/L (3.5-5.1); Sodium 136 mmol/L (136-145)
[2021-11-03 07:43] LABS: MANUAL DIFFERENTIAL MANUAL DIFFERENTIAL (MANUAL DIFF)
[2021-11-03 07:44] LABS: Blood Urea Nitrogen 23 mg/dl (9-20); Creatinine Clearance Estimated 140 mL/min (50-200); Estimated Glomerular Filt Rate 87 ml/min (>60); GFR (African American) 106 ML/MIN (>60)
[2021-11-03 07:45] LABS: Anion Gap 12.8 mEq/L (5-15); Calcium 9.2 mg/dl (8.4-10.2); Carbon Dioxide 23 mmol/L (22.0-30.0); Glucose 338 mg/dl (74-100)
[2021-11-03 07:59] LABS: Lymphocytes % 7 % (10-50); Monocytes % 3 % (2-9); Neutrophils % 90 % (42-76); Platelet Estimate Normal; RBC Morphology Normal; Total Cells Counted 100
--- NOTE | 2021-11-03 09:00 | MR_ITS ---
FINAL REPORT CLINICAL HISTORY: left arm weakness. LEFT SIDED FACIAL AND HEAD NUMBNESS. NUMBESS IN LT ARM AND IN 3-5TH DIGITS. SYMPTOMS X1WK FINDINGS: Multiplanar MR imaging of the cervical spine was performed without contrast. There is motion on many of the images which decreases the sensitivity of this examination. On the sagittal T2-weighted images, disc degeneration is seen at multiple levels. There is no evidence of fracture. The vertebral alignment is normal. The cervical spinal cord has an unremarkable appearance without evidence of mass, edema or syrinx. No significant canal stenosis is identified. The cervicomedullary junction is normal. C2-3: There is no significant canal stenosis or neural foraminal narrowing. C3-4: There is no significant canal stenosis or neural foraminal narrowing. C4-5: Bilateral uncovertebral osteophytes are present. There is mild left neural foraminal narrowing. C5-6: Disc osteophyte complex is present. There is moderate bilateral neural foraminal narrowing. C6-7: Disc osteophyte complex is present. There is moderate right and severe left neural foraminal narrowing. C7-T1: There is no significant canal stenosis or neural foraminal narrowing. IMPRESSION: Multilevel degenerative disc disease and spondylosis with areas of neural foraminal narrowing which is worse on the left at C6-C7. Reviewed, Interpreted and Dictated by Amado Fairchild III, MD Transcribed by Milly Mohamud Authenticated by Amado Fairchild III, MD on 11/03/2021 01:56:19 PM [facility]
--- NOTE | 2021-11-03 09:00 | MR_ITS ---
FINAL REPORT CLINICAL HISTORY: left arm weakness. left arm weakness. LEFT SIDED FACIAL AND HEAD NUMBNESS. NUMBESS IN LT ARM AND IN 3-5TH DIGITS. SYMPTOMS X1WK FINDINGS: Multiplanar MR imaging of the brain was performed without contrast. There is mild age-appropriate atrophy. There are scattered foci of increased T2 signal in the cerebral white matter that have a nonspecific appearance but likely represent moderate chronic ischemic/gliotic changes. There is no evidence of intracranial hemorrhage or mass. No abnormal ventricular dilatation is identified. No abnormal extra-axial fluid collection is seen. No abnormality is seen on the diffusion weighted images. The posterior fossa and brainstem are unremarkable. Normal major vessel vascular flow voids are seen. There is a retention cyst or polyp in the left sphenoid sinus. IMPRESSION: Age-appropriate atrophy and moderate chronic ischemic/gliotic changes. No acute intracranial abnormality. Reviewed, Interpreted and Dictated by Amado Fairchild III, MD Transcribed by Milly Mohamud Authenticated by Amado Fairchild III, MD on 11/03/2021 01:56:19 PM [facility]
--- NOTE | 2021-11-03 10:43 | HMH.PHAINT ---
MEDICATION RECONCILIATION COMPLETED ON PATIENT USING EXTERNAL FILL HISTORY FROM PHARMACY AND PATIENT INTERVIEW. -FERMIN ODONNELL, EMELYND
[2021-11-03 11:24] LABS: POC Glucose,Bedside 271 (70-110)
--- NOTE | 2021-11-03 13:57 | HMH.HP ---
*Admission Date: 11/03/21 *Chief complaint: left facial numbness and left arm numbness *History of present illness: Pleasant 56-year-old gentleman with poorly controlled diabetes and hypertension who presented to the ER yesterday due to focal pain/numbness/weakness in the left side of face and arm. States the symptoms have been present for approximately a week now. As they were not getting better he sought further work-up and treatment. Does complain of pain when he turns to the left. No dizziness, chest pain, confusion. No trauma that he is aware of. Work-up in the ER including labs and imaging. No focal findings on CTA. Patient admitted to medicine for further assessment of TIA versus stroke versus alternative neurologic complication. On evaluation this morning, Mr. Fernández is pleasant with stable vitals. Complains of persistent numbness and weakness. Has pain when he turns his head to the left and pressure is pushed on the top of his head. Pain will shoot down his left arm (Lhermitte's sign). [facility] History I have reviewed the patient's past medical history: Yes Medical History: Reports:: Asthma, Diabetes Mellitus Type 2, Hyperlipidemia, Hypertension Denies:: Cancer, Diabetes Mellitus Type 1, Internal Pacemaker, MRSA, Seizures *Have you ever received a pneumonia vaccine?: No *Have you received a flu vaccine this season?: Yes Other Medical History: Reports: Arthritis. Denies: Blood Transfusion Reaction Laterality Cases: Bilateral: Tonsillectomy Other Surgeries: Yes: No Previous Surgery, Appendectomy, Cardiac Catheterization, Cholecystectomy, Colonoscopy. No: Pacemaker Amputation: No Fractures: No - *Social History Last grade of school completed: 4th or less Smoking Status: Former smoker #Yrs smoked (if former smoker): 4 Alcohol Intake: never Substance Use Type: crack/cocaine, heroin, other *Occupational Status:: employed Housing: house Household Members: significant other *Travel in the last 8 weeks: None Family Hx:: Cancer, Coronary Artery Disease, Diabetes, Heart Attack, Hyperlipidemia, Hypertension, Stroke Review of Systems - Review of Systems Review of systems:: pertinent systems reviewed and negative unless documented below (14 point review of systems performed, pertinent positives and negatives as per HPI) - *Neurologic Reports numbness, Reports tingling, Reports weakness, Denies abnormal walking, Denies abnormal speech, Denies confusion, Denies unsteadiness, Denies dizziness, Denies headache(s), Denies loss of vision Meds Home Medications Medication Instructions Recorded Confirmed Type Dulaglutide [Trulicity] 1.5 mg SQ WEEKLY 12/07/20 11/03/21 History Lisinopril/Hydrochlorothiazide 1 tab PO DAILY 12/07/20 11/03/21 History [Lisinopril-Hctz 20-12.5 mg Tab*] Tamsulosin HCl 0.4 mg PO HS 12/07/20 11/03/21 History metformin 1,000 mg tablet 1,000 mg PO BIDWMEAL tab 01/07/21 11/03/21 History amlodipine 5 mg tablet 5 mg PO DAILY tab 02/18/21 11/03/21 History dapagliflozin 10 mg tablet 10 mg PO DAILY tab 02/18/21 11/03/21 History Cyclobenzaprine HCl [Flexeril 10mg 10 mg PO BIDP PRN 11/03/21 11/03/21 History tablet] Diclofenac Sodium [Diclofenac 75mg 75 mg PO BID 11/03/21 11/03/21 History Tab] Gabapentin [Gabapentin 100mg Cap] 100 mg PO HS 11/03/21 11/03/21 History Isosorbide Mononitrate [Isosorbide 30 mg PO DAILY 11/03/21 11/03/21 History Mononitrate ER] Allergies Allergy/AdvReac Type Severity Reaction Status Date / Time Iodinated Contrast Media Allergy Vomiting Verified 02/18/21 08:11 oxybutynin Allergy Hives Verified 02/18/21 08:11 Exam Vital signs and Labs for Last 24 Hours: Temp Pulse Resp BP Pulse Ox 97.9 F 100 H 17 138/88 95 11/03/21 08:00 11/03/21 08:00 11/03/21 08:00 11/03/21 08:00 11/03/21 08:00 Laboratory Results - last 24 hr 11/02/21 20:35: WBC 9.0, RBC 5.11, Hgb 16.2, Hct 49.5, MCV 96.8 H, MCH 31.7 H, MCHC 32.8, RDW 13.8, Plt Count 250, MPV 9.1, Neut %
--- NOTE | 2021-11-03 15:07 | PC.NURSE ---
Pt is alert and oriented x4. He ambulates independently. Glucose was 271 at lunch, covered w/SSI. Mild left sided weakness noted. No complaints voiced. Bed locked and in the lowest position, call light within reach.
[2021-11-03 16:15] LABS: POC Glucose,Bedside 281 (70-110)
[2021-11-03 16:54] LABS: Hemoglobin A1C 6.1 % (4.0-6.0)
[2021-11-03 20:43] LABS: POC Glucose,Bedside 239 (70-110)
[2021-11-04 04:00] VITALS: BP 138/85; PULSE 90; RESP 18; TEMP 36.7; O2SAT 97
--- NOTE | 2021-11-04 04:03 | PC.NURSE ---
No acute changes thus far in shift. Pt has rested well. Pt can ambulate independently in and outside of his room. Pt c/o of headache x1, admin meds per MAR with relief. Pt is A/O x3.
[2021-11-04 04:39] VITALS: BMI 32.8
[2021-11-04 05:49] LABS: POC Glucose,Bedside 106 (70-110)
[2021-11-04 06:53] LABS: Anion Gap 8.8 mEq/L (5-15); Blood Urea Nitrogen 26 mg/dl (9-20); Calcium 8.6 mg/dl (8.4-10.2); Carbon Dioxide 30 mmol/L (22.0-30.0); Chloride 104 mmol/L (98-107); Creatinine Clearance Estimated 138 mL/min (50-200); Estimated Glomerular Filt Rate 87 ml/min (>60); GFR (African American) 106 ML/MIN (>60); Glucose 142 mg/dl (74-100); Potassium 3.8 mmoL/L (3.5-5.1); Sodium 139 mmol/L (136-145)
[2021-11-04 06:57] LABS: Basophils # 0.2 K/mm3 (0-0.2); Basophils % 0.9 % (0.1-2.0); Hematocrit 45.7 % (42.0-52.0); Hemoglobin 15.2 g/dL (14.1-18.0); Lymphocytes # 3.2 K/mm3 (0.7-4.5); Lymphocytes % 14.9 % (10-50); Mean Corpuscular HGB Conc 33.3 g/dL (31.8-35.4); Mean Corpuscular Hemoglobin 32.1 pg (27.0-31.2); Mean Corpuscular Volume 96.5 fl (80-94); Monocytes # 1.1 K/mm3 (0.1-1.0); Monocytes % 4.9 % (1.7-9.3); Neutrophils # 17.2 K/mm3 (1.8-7.8); Neutrophils % 79.4 % (37.0-80.0); Platelet Count 260 K/mm3 (142-424); Red Blood Count 4.74 M/mm3 (4.60-6.20); White Blood Count 21.6 K/mm3 (4.8-10.8)
[2021-11-04 07:08] LABS: MANUAL DIFFERENTIAL MANUAL DIFFERENTIAL (MANUAL DIFF)
[2021-11-04 07:39] LABS: Lymphocytes % 13 % (10-50); Monocytes % 5 % (2-9); Neutrophils % 82 % (42-76); Platelet Estimate Normal; RBC Morphology Normal; Total Cells Counted 100
[2021-11-04 08:00] VITALS: BP 139/95; PULSE 87; RESP 18; TEMP 36.6; O2SAT 98
--- NOTE | 2021-11-04 09:00 | HMH.DCSUM ---
General - General Admission date:: 11/03/21 Discharge date: 11/04/21 HPI HPI: Estefani 56-year-old gentleman with poorly controlled diabetes and hypertension who presented to the ER yesterday due to focal pain/numbness/weakness in the left side of face and arm. States the symptoms have been present for approximately a week now. As they were not getting better he sought further work-up and treatment. Does complain of pain when he turns to the left. No dizziness, chest pain, confusion. No trauma that he is aware of. Work-up in the ER including labs and imaging. No focal findings on CTA. Patient admitted to medicine for further assessment of TIA versus stroke versus alternative neurologic complication. On evaluation this morning, Mr. Fernández is pleasant with stable vitals. Complains of persistent numbness and weakness. Has pain when he turns his head to the left and pressure is pushed on the top of his head. Pain will shoot down his left arm (Lhermitte's sign). Hospital Course Hospital Course: Patient was admitted. Blood pressure was controlled. Patient's MRI showed no evidence of stroke but MRI of C-spine showed significant left-sided disc herniation with evidence of foraminal narrowing, certainly explain his left-sided radicular symptoms. He was given some steroids and gabapentin felt better. This morning was better, no neurologic symptoms except for the left arm issues. Plan to be to discharge home on higher dose gabapentin. 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 I have instructed patient to take 2 gabapentin tablets 3 times daily for his arm pain and I will increase his dose in the office tolerated. Objective Vital signs: Temp Pulse Resp BP Pulse Ox 98.0 F 90 18 138/85 97 11/04/21 04:00 11/04/21 04:00 11/04/21 04:00 11/04/21 04:00 11/04/21 04:00 no acute distress - *Routine HEENT Exam Head: Present: normocephalic Eye: Present: EOMI, PERRL ENT: Present: mucous membranes moist - *Routine Neck Exam Present: supple - *Routine Respiratory Exam Present: CTA bilaterally - *Routine Cardiovascular Exam Present: RRR - *Routine Abdominal Exam Present: soft, normoactive bowel sounds. 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 Pain with elbow abduction. - *Routine Skin Exam Present: warm. Absent: rash - Detailed Eye Exam Eyelids: Bilateral normal inspection Results Labs on day of discharge: Labs from last 24 hours 11/04/21 11/04/21 11/04/21 06:30 06:30 05:38 WBC 21.6 H* D RBC 4.74 Hgb 15.2 Hct 45.7 MCV 96.5 H MCH 32.1 H MCHC 33.3 RDW 14.0 Plt Count 260 MPV 9.0 Neut % (Auto) 79.4 Lymph % (Auto) 14.9 [place] % (Auto) 4.9 Eos % (Auto) 0.0 L Baso % (Auto) 0.9 Neut # (Auto) 17.2 H Lymph # (Auto) 3.2 [place] # (Auto) 1.1 H Eos # (Auto) 0.0 Baso # (Auto) 0.2 Total Counted 100 Neutrophils % (Manual) 82 H Lymphocytes % (Manual) 13 Monocytes % (Manual) 5 Platelet Estimate Normal RBC Morphology Normal Sodium 139 Potassium 3.8 Chloride 104 Carbon Dioxide 30 Anion Gap 8.8 BUN 26 H Creatinine 0.90 Estimated Creat Clear 138 Estimated GFR 87 Est GFR ( Amer) 106 Glucose 142 H D POC Glucose 106 Hemoglobin A1c Calcium 8.6 11/03/21 11/03/21 11/03/21 20:10 16:07 11:14 WBC RBC Hgb Hct MCV MCH MCHC RDW Plt Count MPV Neut % (Auto) Lymph % (Auto) [place] % (Auto) Eos % (Auto) Baso % (Auto) Neut # (Auto) Lymph # (Auto) [place] # (Auto) Eos # (Auto) Baso # (Auto) Total Counted Neutrophils % (Manual) Lymphocytes % (Manual) Monocy
--- NOTE | 2021-11-09 15:45 | CARE MANAGER ---
Attempted x3 to contact patient related to follow up from hospital discharge. DERRICK Dobson
== END 2021-11-04 10:18 | disposition home or self-care (01) ==
LOC: ER 20:45 → 2ND 23:31
PROVIDERS: Emergency Medicine; Internal Medicine Adolescent Medicine; Admitting Provider Family Medicine; Emergency Provider Emergency Medicine; PCP Internal Medicine Adolescent Medicine; Visit Provider Internal Medicine Adolescent Medicine
DX: G45.8 Other transient cerebral ischemic attacks and related syndromes (principal); Z20.822 Contact with and (suspected) exposure to COVID-19; I10 Essential (primary) hypertension; E78.5 Hyperlipidemia, unspecified; Z79.84 Long term (current) use of oral hypoglycemic drugs; E11.65 Type 2 diabetes mellitus with hyperglycemia
CPT/HCPCS: 36415; 70450; 70496; 70498; 70551; 72141; 76376; 80048; 80053; 82962; 83036; 84484; 85007; 85025; 85610; 85730; 93005; 96375; 99285; C9803; G0378; J2405; Q9967; U0003; U0005

== ENCOUNTER 2022-01-27 21:48 | Emergency (ER) | payer BC, SELFPAY ==
--- NOTE | 2022-01-27 21:45 | ECG_ITS ---
APPROVED REPORT Exam: Resting ECG HR:97 bpm ECG Measurements Heart Rate 97 AXES IL 142 P 53 QRSd 85 QRS 35 QT 351 T 0 QTc 405 Conclusion SINUS RHYTHM NONSPECIFIC ST & T-WAVE ABNORMALITY BORDERLINE ECG INTERPRETATION BASED ON A DEFAULT AGE OF 40 YEARS UNCONFIRMED REPORT Electronically signed by : Sony Rucker MD 01/28/2022 21:06:48
[2022-01-27 21:48] VITALS: BP 92/54; PULSE 90; RESP 16; TEMP 37.5; O2SAT 96; BMI 32.6
[2022-01-27 22:20] LABS: Microscopic, Urine URINE MICROSCOPIC (MICROSCOPIC)
[2022-01-27 22:26] LABS: Alanine Aminotransferase 48 U/L (12-78); Albumin Level 4.3 g/dl (3.5-5.0); Albumin/Globulin Ratio 1.4 (1.1-1.8); Alkaline Phosphatase 93 U/L (38-126); Amylase 87 U/L (30-110); Anion Gap 11.7 mEq/L (5-15); Aspartate Amino Transferase 50 U/L (17-59); Bilirubin,Total 0.3 mg/dl (0.2-1.3); Blood Urea Nitrogen 30 mg/dl (9-20); Calcium 9.7 mg/dl (8.4-10.2); Carbon Dioxide 27 mmol/L (22.0-30.0); Chloride 105 mmol/L (98-107); Creatinine Clearance Estimated 88 mL/min (50-200); Estimated Glomerular Filt Rate 52 ml/min (>60); GFR (African American) 63 ML/MIN (>60); Globulin 3.1 g/dL (1.3-3.2); Glucose 126 mg/dl (74-100); Lipase 78 U/L (23-300); Potassium 3.7 mmoL/L (3.5-5.1); Sodium 140 mmol/L (136-145); Total Protein,Serum 7.4 g/dl (6.3-8.2)
[2022-01-27 22:30] LABS: Basophils # 0.2 K/mm3 (0-0.2); Basophils % 2.5 % (0.1-2.0); Eosinophils # 0.2 K/mm3 (0.0-0.4); Eosinophils % 2.1 % (0.1-12.0); Hematocrit 46.8 % (42.0-52.0); Hemoglobin 14.8 g/dL (14.1-18.0); Lymphocytes # 1.4 K/mm3 (0.7-4.5); Lymphocytes % 17.1 % (10-50); Mean Corpuscular HGB Conc 31.6 g/dL (31.8-35.4); Mean Corpuscular Hemoglobin 31.2 pg (27.0-31.2); Mean Corpuscular Volume 98.7 fl (80-94); Mean Platelet Volume 9.1 fl (7.4-10.4); Monocytes # 0.6 K/mm3 (0.1-1.0); Monocytes % 7.6 % (1.7-9.3); Neutrophils # 5.7 K/mm3 (1.8-7.8); Neutrophils % 70.6 % (37.0-80.0); Platelet Count 223 K/mm3 (142-424); Red Blood Count 4.74 M/mm3 (4.60-6.20); Red Cell Distribution Width 14.2 % (11.5-17.5)
[2022-01-27 22:48] LABS: Troponin I < 0.01 ng/ml (0.00-0.034)
[2022-01-27 22:49] LABS: Appearance,Urine CLEAR (Clear); Bilirubin,Urine Negative (Negative); Blood, Urine TRACE-I (Negative); Color,Urine YELLOW (Yellow); Glucose,Urine (UA) 3+ (Negative); Ketones,Urine Negative (Negative); Leukocyte Esterase,Urine Negative (Negative); Nitrate,Urine Negative (Negative); Protein,Urine Negative (Negative); Specific Gravity, Urine 1.025 (1.005-1.030); Urobilinogen,Urine 0.2 EU/dl (0.2)
[2022-01-27 22:55] LABS: Bacteria,Urine Trace /lpf; RBC,Urine Occasional #/hpf (0-3); WBC,Urine Occasional #/hpf (0-3)
--- NOTE | 2022-01-27 23:08 | PC.NURSE ---
at speaking with pt about POC
[2022-01-27 23:09] VITALS: BP 102/62; PULSE 91; O2SAT 96
--- NOTE | 2022-01-27 23:15 | CT_ITS ---
PROCEDURE INFORMATION: Exam: CT Abdomen And Pelvis With Contrast Exam date and time: 01/27/2022 11:45 PM Age: 56 years old Clinical indication: Abdominal pain; Generalized; Prior surgery; Surgery type: Cholecystectomy; Additional info: Acute periumbilical abdominal pain TECHNIQUE: Imaging protocol: Computed tomography of the abdomen and pelvis with contrast. Radiation optimization: All CT scans at this facility use at least one of these dose optimization techniques: automated exposure control; mA and/or kV adjustment per patient size (includes targeted exams where dose is matched to clinical indication); or iterative reconstruction. Contrast material: ISOVUE; Contrast volume: 75 ml; Contrast route: IV; COMPARISON: CT ABDOMEN PELVIS WO CON 12/07/2020 10:20 AM FINDINGS: Lungs: Lung bases are free of consolidation effusions pneumothorax or pulmonary nodules. Liver: 18 cm in length. There is diffuse liver hypodensity compatible with steatosis. No evidence of intrahepatic biliary dilatation. Gallbladder and bile ducts: Status post cholecystectomy. No biliary dilatation. Pancreas: No focal lesions, inflammatory changes or ductal dilatation. Spleen: Intact with no focal lesions. No splenomegaly. Adrenal glands: Normal. No mass. Kidneys and ureters: No hydronephrosis or nephrolithiasis. Exophytic cyst arising from the upper pole of the left kidney measuring 6.5 x 5.4 x 5.6 cm, unchanged in size or appearance when compared to the prior study. 1.2 cm cyst in the left kidney. Stomach and bowel: Unremarkable. No obstruction. No mucosal thickening. No diverticuli identified. Appendix: Appears surgically absent . Intraperitoneal space: Unremarkable. No free air. No significant fluid collection. Vasculature: Unremarkable. No abdominal aortic aneurysm. Lymph nodes: Unremarkable. No enlarged lymph nodes. Urinary bladder: Unremarkable as visualized. Reproductive: Unremarkable as visualized. Bones/joints: Unremarkable. No acute fracture. Soft tissues: Unremarkable. IMPRESSION: 1. Liver steatosis. 2. Status post cholecystectomy. 3. Status post appendectomy. 4. Bilateral renal cysts, stable. COMMENTS: Consistent with the [place] [employer]'s Incidental Findings Committee white paper (J Am Mikey Radiol 2018): Any incidental renal lesion less than 1 cm or classified as too small to characterize, or any incidental cystic renal lesion characterized as simple-appearing, is likely benign. No follow-up imaging is recommended for these lesions per consensus recommendations based on imaging criteria.
--- NOTE | 2022-01-27 23:20 | HMH.EDGENADL ---
ED Disposition Clinical Impression: Abdominal pain, COVID-19, LISANDRA (acute kidney injury) Disposition: Home, Self-Care Condition on Discharge: Good Instructions: DI for Acute Abdominal Pain Additional Instructions: At this time was felt you are safe to be discharged home. Please call your family doctor and schedule an appointment in the coming days for continued evaluation. If new or worsening symptoms or inability to tolerate by mouth intake do not hesitate to return to the emergency department. Referrals: Provider,Referral, [Primary Care Provider] - - Critical Care Critical Care Time: No Attestation: On 01/27/22, the high probability of a clinically significant, sudden or life threatening deterioration of the following system(s) required my full and direct attention, intervention and personal management. The time I documented below is in addition to time spent performing reported procedures but includes the following listed in this critical care notation. Medical Decision Making - Miller Inquiry Pt receiving controlled substance: No Vital Signs: 01/27/22 21:48 01/27/22 23:09 01/28/22 00:22 Temperature 99.5 F Temperature Source Oral Pulse Rate 91 H 85 Pulse Rate [Left Radial] 90 Respiratory Rate 16 Blood Pressure 102/62 L 108/62 L Blood Pressure [Right Arm] 92/54 L Blood Pressure Mean Blood Pressure Mean [Right Arm] 66 Blood Pressure Source [Right Arm] Automatic Cuff Blood Pressure Position [Right Arm] Sitting 02 Sat by Pulse Oximetry 96 96 93 L Oxygen Delivery Method Room Air Room Air Room Air 01/28/22 01:00 01/28/22 01:30 01/28/22 02:23 Temperature 98.1 F Temperature Source Oral Pulse Rate 89 85 87 Pulse Rate [Left Radial] Respiratory Rate 12 Blood Pressure 116/73 115/76 122/78 Blood Pressure [Right Arm] Blood Pressure Mean 83 86 Blood Pressure Mean [Right Arm] Blood Pressure Source [Right Arm] Blood Pressure Position [Right Arm] 02 Sat by Pulse Oximetry 96 94 L Oxygen Delivery Method Room Air 01/28/22 02:30 01/28/22 02:43 Temperature 98.9 F Temperature Source Oral Pulse Rate 92 H Pulse Rate [Left Radial] Respiratory Rate 16 Blood Pressure 123/79 123/79 Blood Pressure [Right Arm] Blood Pressure Mean 88 Blood Pressure Mean [Right Arm] Blood Pressure Source [Right Arm] Blood Pressure Position [Right Arm] 02 Sat by Pulse Oximetry Oxygen Delivery Method Room Air - Lab Data Lab Results 01/27/22 22:10: WBC 8.0, RBC 4.74, Hgb 14.8, Hct 46.8, MCV 98.7 H, MCH 31.2, MCHC 31.6 L, RDW 14.2, Plt Count 223, MPV 9.1, Neut % (Auto) 70.6, Lymph % (Auto) 17.1, [place] % (Auto) 7.6, Eos % (Auto) 2.1, Baso % (Auto) 2.5 H, Neut # (Auto) 5.7, Lymph # (Auto) 1.4, [place] # (Auto) 0.6, Eos # (Auto) 0.2, Baso # (Auto) 0.2 01/27/22 22:10: Sodium 140, Potassium 3.7, Chloride 105, Carbon Dioxide 27, Anion Gap 11.7, BUN 30 H, Creatinine 1.40 H, Estimated Creat Clear 88, Estimated GFR 52 L, Est GFR ( Amer) 63, Glucose 126 H, Calcium 9.7, Total Bilirubin 0.3, AST 50, ALT 48, Alkaline Phosphatase 93, Total Protein 7.4, Albumin 4.3, Globulin 3.1, Albumin/Globulin Ratio 1.4, Amylase 87, Lipase 78 01/27/22 22:10: Troponin I < 0.01 01/27/22 22:10: SARS-CoV-2 (PCR) Detected A, Influenza A Untype (PCR) Not detected, Influenza Type B (PCR) Not detected 01/27/22 22:15: Urine Color Yellow, Urine Appearance Clear, Urine pH 6.0, Ur Specific [place] 1.025, Urine Protein Negative, Urine Glucose (UA) 3+, Urine Ketones Negative, Urine Blood Trace-i, Urine Nitrate Negative, Urine Bilirubin Negative, Urine Urobilinogen 0.2, Ur Leukocyte Esterase Negative, Urine RBC Occasional, Urine WBC Occasional, Ur Squamous Epith Cells 3-5, Urine Bacteria Trace 01/28/22 01:40: Troponin I < 0.01 Result diagrams: 01/27/22 22:10 01/27/22 22:10 Orders (Tests/Meds): ED MEDICATIONS Generic Name Dose Route Start Last Admin Trade Name Freq PRN Reason Stop Dose Admin Sodium Chlo
[2022-01-28 00:22] VITALS: BP 108/62; PULSE 85; O2SAT 93
[2022-01-28 01:00] VITALS: BP 116/73; PULSE 89; O2SAT 96
[2022-01-28 01:30] VITALS: BP 115/76; PULSE 85; RESP 12; TEMP 36.7; O2SAT 94
--- NOTE | 2022-01-28 01:40 | PC.NURSE ---
SECOND TROP OBTAINED. PT TOLERATED WELL. PT UPDATED WITH EXPECTED WAIT TIMES. NO COMPLAINTS VOICED. NO ACUTE DISTRESS NOTED.
[2022-01-28 02:05] LABS: Influenza A, PCR Not Detected (NotDetected); Influenza B, PCR Not Detected (NotDetected)
--- NOTE | 2022-01-28 02:20 | PC.NURSE ---
PT UPDATED WITH EXPECTED WAIT TIMES. NO COMPLAINTS VOICED. NO ACUTE DISTRESS NOTED.
[2022-01-28 02:23] VITALS: BP 122/78; PULSE 87
[2022-01-28 02:29] LABS: Troponin I < 0.01 ng/ml (0.00-0.034)
[2022-01-28 02:30] VITALS: BP 123/79
[2022-01-28 02:32] LABS: Coronavirus 19, PCR Detected (NotDetected)
[2022-01-28 02:43] VITALS: BP 123/79; PULSE 92; RESP 16; TEMP 37.2; O2SAT 99
== END 2022-01-28 04:09 | disposition home or self-care (01) ==
PROVIDERS: Emergency Provider Emergency Medicine
DX: U07.1 COVID-19 (principal); N17.9 Acute kidney failure, unspecified; Z88.8 Allergy status to other drugs, medicaments and biological substances; Z91.041 Radiographic dye allergy status; J45.909 Unspecified asthma, uncomplicated; E11.9 Type 2 diabetes mellitus without complications; E78.5 Hyperlipidemia, unspecified; I10 Essential (primary) hypertension; M19.90 Unspecified osteoarthritis, unspecified site; Z87.891 Personal history of nicotine dependence
CPT/HCPCS: 74177; 80053; 81001; 82150; 83690; 84484; 85025; 93005; 96365; 96375; 99285; C9803; J2405; Q9967; U0003; U0005

== ENCOUNTER 2022-05-08 22:34 | Emergency (ER) | payer BC, SELFPAY ==
[2022-05-08 22:36] VITALS: BP 146/93; PULSE 88; RESP 17; TEMP 36.9; O2SAT 97; BMI 32.6
[2022-05-08 23:01] VITALS: BP 125/85; PULSE 89; O2SAT 96
[2022-05-08 23:30] VITALS: BP 123/83; PULSE 81; O2SAT 95
--- NOTE | 2022-05-08 23:50 | HMH.EDBACK ---
Discharge Plan Disposition Patient Disposition: Home, Self-Care Condition: Good Prescriptions Prescriptions: New methocarbamol 500 mg tablet 500 mg PO Q8H Qty: 30 0RF No Action metformin 1,000 mg tablet 1,000 mg PO BIDWMEAL Farxiga 10 mg tablet 10 mg PO DAILY amlodipine 5 mg tablet 5 mg PO DAILY tamsulosin 0.4 MG capsule 0.4 mg PO HS lisinopril-hydrochlorothiazide 1 EACH tablet 1 tab PO DAILY dulaglutide 1.5 MG/0.5 ML pen injector 1.5 mg SQ WEEKLY isosorbide mononitrate 30 MG tablet extended release 24 hr 30 mg PO DAILY diclofenac sodium 75 MG tablet,delayed release (DR/EC) 75 mg PO BID cyclobenzaprine 10 MG tablet 10 mg PO BIDP PRN (Reason: Muscle Spasms) gabapentin 100 MG capsule 100 mg PO HS Rx Instructions: Increase dose to 2 capsules twice daily Referrals Follow up/Referrals: Sony Rucker MD [Primary Care Provider] - See instructions Activity Restrictions/Add. Instructions Additional Instructions/Restrictions: Recommend increasing your gabapentin from 100 mg twice a day to 100 mg 3 times a day and schedule close follow-up with your regular doctor. Additionally, you are provided with a prescription for Robaxin to use as well. Recommend continuing to alternate Tylenol and ibuprofen. Please avoid any exercises that worsen the pain, recommend no heavy lifting. Additionally, you can try ice or heat to the area and [id number] lidocaine patches. Please call your regular doctor early next week to schedule an appointment. Clinical Impressions Clinical Impression: Acute exacerbation of chronic low back pain Instructions Patient Instructions: DI for Low Back Pain Discharge ED Provider: Sol Vazquez Back Pain HPI General Chief Complaint: Back Pain/Injury Stated Complaint: PAIN IN BACK AND BOTH LEGS Time Seen by Provider: 05/08/22 23:00 Mode of Arrival: Family Vehicle Source of Information: Patient Limitations: No Limitations Description of Symptoms (Recalled from ER Triage Doc. by RN): Pt c/o low back pain that radiates to bilateral flanks and down legs. Report his feet feel like they've been put in ice fire . He reports a hx of bulging discs and neuropathy. He reports I have been working a pretty hard at work . 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 So he is bending, twisting, and lifting a lot. History of Present Illness HPI Narrative: This is a 56-year-old male with PMH of chronic back pain, HTN, DM, neuropathy who presents with 2 days of acute worsening of his lower back pain. Patient states he has had increasing heavy lifting at work over the past week. He has known history of lower back pain that is followed by his regular doctor and is currently on gabapentin for the past 3 months. He has undergone imaging of his back in the past previously. He has tried Aleve without relief of symptoms. Currently, also complains of burning of his bilateral feet but denies any new numbness or weakness. He is still able to ambulate. No bowel or bladder incontinence. No trauma to the area. No upper back pain. Related Data Home Medications Medication Instructions Recorded Confirmed dulaglutide 1.5 mg/0.5 mL 1.5 mg SQ WEEKLY Diabetes 12/07/20 01/27/22 subcutaneous pen injector lisinopril 20 1 tab PO DAILY High blood pressure 12/07/20 01/27/22 mg-hydrochlorothiazide 12.5 mg tablet tamsulosin 0.4 mg capsule 0.4 mg PO HS prostate 12/07/20 01/27/22 metformin 1,000 mg tablet 1,000 mg PO BIDWMEAL Diabetes 01/07/21 01/27/22 amlodipine 5 mg tablet 5 mg PO DAILY High blood pressure 02/18/21 01/27/22 dapagliflozin 10 mg tablet 10 mg PO DAILY Diabetes 02/18/21 01/27/22 ([facility]) cyclobenzaprine 10 mg tablet 10 mg PO BIDP PRN Muscle Spasms 11/03/21 01/27/22 diclofenac sodium 75 mg 75 mg PO BID Pain 11/03/21 01/27/22 tablet,delayed release isosorbide mononitrate 30 mg 30 mg PO DAILY ANGINA 11/03/21 01/27/22 tablet,extended
[2022-05-09 00:31] VITALS: BP 132/86; PULSE 82; O2SAT 97
[2022-05-09 00:53] VITALS: BP 131/94; PULSE 81; RESP 18; TEMP 36.7; O2SAT 99
== END 2022-05-09 01:02 | disposition home or self-care (01) ==
PROVIDERS: Emergency Provider Student in an Organized Health Care Education/Training Program; PCP Internal Medicine Adolescent Medicine
DX: M54.50 Low back pain, unspecified (principal); M79.605 Pain in left leg; M79.604 Pain in right leg
CPT/HCPCS: 99283

== ENCOUNTER 2022-07-10 00:51 | Inpatient (IN) | payer BC, SELFPAY ==
[2022-07-10] VITALS (24 sets, daily range): BP systolic 110–162; BP diastolic 72–111; PULSE 84–100; RESP 16–20; TEMP 36.6–36.9; O2SAT 92–100; BMI 74.0; BMI 33.7
--- NOTE | 2022-07-10 | IR_ITS ---
APPROVED REPORT Patient Location: Inpatient Emergent Co Supervisor [employer]: JUDE Baca RT (R) PROCEDURES Left heart catheterization Left ventriculogram Selective coronary angiogram Drug-eluting stent deployment to the proximal and mid LAD with 1 contiguous stent INDICATION Acute non-ST elevation myocardial infarction, Coronary artery disease Informed consent was obtained prior to the procedure. COMPLICATIONS NONE Estimated Blood Loss: LESS THAN 10 ML TECHNIQUE One percent lidocaine used to anesthetize the right anterior aspect of the wrist. The right radial artery was accessed via the Seldinger technique. A 6 Bulgarian sheath was placed in the right radial artery. 2.5 mg of verapamil, 800 mcg of nitroglycerin, 1mg Lidocaine and 5000 U Heparin were given through the arterial sheath. The papa catheter was also used to perform left heart catheterization, left ventriculogram and selective coronary angiogram. At the end the diagnostic angiogram therapeutic heparin was administered giving a therapeutic ACT and the guide catheter was placed in the left main artery followed by a Choice PT extra-support wire being placed down the diagonal artery and the LAD. A 3.5 x 38 mm resolute [place] stent was deployed at 20 reducing the hazy critical stenosis to 0%. A 4 mm x 12 mm noncompliant balloon was then placed in the proximal LAD and deployed at 24 sobia to post dilate the stent. JUAN-3 flow was present before and after the procedure. At the end the procedure the apparatus was removed the sheath was removed good hemostasis was achieved using TR banding patient was transferred the postop putting in stable condition ANGIOGRAPHIC RESULTS The left main artery Normal The left anterior descending artery Has proximal concentric hazy 80% stenosis with an additional hazy 80% mid vessel stenosis. The mid and distal LAD have 20 and 30% diffuse stenoses. A large diagonal artery has 10 to 20% stenoses The circumflex artery Is probably a dominant vessel and has proximal 30% stenosis with a mid vessel 50 to 60% stenosis which supplies a terminal obtuse marginal artery The right coronary artery Codominant and normal The ORDRIGES ventriculogram reveals Preserved ejection fraction of 55% with mild anterior wall hypokinesis The left ventricular end-diastolic pressure 20 to 25 mmHg IMPRESSION Critical disease in the proximal mid LAD as described above with successful stenting reducing the lesions to 0% with 1 drug-eluting stent Mild regional wall motion abnormality Elevated LVEDP consistent with ischemic heart disease Persistent moderate stenosis in the circumflex artery as described above PLAN 1. Brilinta 90 twice daily plus aspirin 81 mg daily 2. LDL goal of 55 to be achieved with high intensity statin 3. And higher dose of beta-talha to control heart rate and blood pressure 4. Add WON inhibitor prior to discharge 5. Avoidance of tobacco products 6. Cardiac rehabilitation 7. Recommend stress Myoview in 6 weeks to evaluate the circumflex artery to determine if this is ischemia producing Electronically signed by : Sony Sheppard MD 07/10/2022 10:50:55
--- NOTE | 2022-07-10 01:09 | PC.NURSE ---
Pt arrived to floor via [facility] stretcher @ [id number].
[2022-07-10 01:30] LABS: Coronavirus 19, PCR Not Detected (NotDetected); Influenza A, PCR Not Detected (NotDetected); Influenza B, PCR Not Detected (NotDetected)
--- NOTE | 2022-07-10 01:46 | ECG_ITS ---
APPROVED REPORT Exam: Resting ECG HR:85 bpm ECG Measurements Heart Rate 85 AXES MI 158 P 54 QRSd 92 QRS 18 QT 402 T 34 QTc 444 Conclusion SINUS RHYTHM WITH SINUS ARRHYTHMIA LOW QRS VOLTAGE IN PRECORDIAL LEADS [QRS DEFLECTION < 1.0 mV IN CHEST LEADS] BORDERLINE ECG UNCONFIRMED REPORT Electronically signed by : Sony Rucker MD 07/10/2022 21:19:22
--- NOTE | 2022-07-10 01:49 | EXP.HP ---
History of Present Illness *Admission Date: 07/10/22 *Reason for visit:: Chest Pain *History of present illness: Mr. Cruz is a 56-year-old male with a past medical history of DM, Peripheral Neuropathies, BPH and Hypertension. He presents as a transfer from [facility] due to acute onset of chest pain that occurred right before arrival. The patient was transferred for Cardiology evaluation. He was seen upon presentation to the facility. He reports that the chest pain occurred at approximately 2000 while he was at work, he reports that activity or resting did not make the pain worse. He reports that the pain went from the mid-chest region down the left arm. He denies that the pain was associated with shortness of air. He reports a prior heart cath and stress testing done in [place] approximately 3 years ago. He reports that he does not recall the facility name. At the outlying facility, EKG showed NSR with rate of [address] segment depression. Troponin was elevated. CTA of the chest showed no PE with mild atelectasis. The patient will be admitted with initial impression: Chest Pain, Cardiology will be consulted to see the patient. He will be monitored on telemetry with serial troponin. FLP and echo have been ordered. The plan of care was discussed with the patient on admission. He verbalizes understanding and agreement with the plan of care. [facility] Disclaimer: The information contained in this section may have been updated after the patient was seen, as this information can be updated by other users. Medical History (Updated 07/10/22 @ 02:03 by Ganesh Velasco DNP) BPH (benign prostatic hyperplasia) Diabetes Peripheral neuropathy Surgical History (Updated 07/10/22 @ 02:02 by Ganesh Velasco DNP) S/P appendectomy S/P cholecystectomy Social History Smoking Status: Former smoker pack-years: 4 second hand exposure: No alcohol intake: never substance use type: crack/cocaine, heroin and other current occupational status: employed Travel in the last 8 weeks: None household members: significant other housing: house current occupation: off work due to injury current occupational exposures/hazards: No caffeine: Yes Review of Systems Review of Systems Review of systems:: pertinent systems reviewed and negative unless documented below Constitutional Constitutional: Reports system reviewed and no additional complaints, except as documented Eyes Eyes: Reports system reviewed and no additional complaints, except as documented ENT Ears, Nose, Mouth, and Throat: Reports system reviewed and no additional complaints, except as documented *Cardiovascular Cardiovascular: Reports chest pain, Reports chest pain at rest and Reports chest pain with activity *Respiratory Respiratory: Reports system reviewed and no additional complaints, except as documented *Gastrointestinal Gastrointestinal: Reports system reviewed and no additional complaints, except as documented *Genitourinary Genitourinary: Reports system reviewed and no additional complaints, except as documented *Musculoskeletal Musculoskeletal: Reports system reviewed and no additional complaints, except as documented Integumentary/Breasts Skin/Breast: Reports system reviewed and no additional complaints, except as documented *Neurologic Neurologic: Reports system reviewed and no additional complaints, except as documented Psychiatric Psychiatric: Reports system reviewed and no additional complaints, except as documented Endocrine Endocrine: Reports system reviewed and no additional complaints, except as documented Hematologic/Lymphatic Hematologic/Lymphatic: Reports system reviewed and no additional complaints, except as documented Allergic/Immunologic Allergic/Immunologic: Reports system reviewed and no additional complaints, except as documented Meds Home Medications and Allergi
[2022-07-10 03:00] LABS: Basophils # 0.1 K/mm3 (0-0.2); Basophils % 0.7 % (0.1-2.0); Eosinophils # 0.2 K/mm3 (0.0-0.4); Eosinophils % 1.7 % (0.1-12.0); Hematocrit 45.6 % (42.0-52.0); Lymphocytes # 1.6 K/mm3 (0.7-4.5); Lymphocytes % 11.9 % (10-50); Mean Corpuscular HGB Conc 32.9 g/dL (31.8-35.4); Mean Corpuscular Volume 94.2 fl (80-94); Mean Platelet Volume 9.2 fl (7.4-10.4); Monocytes # 0.5 K/mm3 (0.1-1.0); Monocytes % 3.8 % (1.7-9.3); Neutrophils # 10.9 K/mm3 (1.8-7.8); Neutrophils % 81.9 % (37.0-80.0); Platelet Count 269 K/mm3 (142-424); Red Blood Count 4.84 M/mm3 (4.60-6.20); White Blood Count 13.3 K/mm3 (4.8-10.8)
[2022-07-10 03:09] LABS: Chloride 99 mmol/L (98-107); Potassium 3.7 mmoL/L (3.5-5.1); Sodium 137 mmol/L (136-145)
[2022-07-10 03:11] LABS: Blood Urea Nitrogen 20 mg/dl (9-20); Creatinine Clearance Estimated 80 mL/min (50-200); Estimated Glomerular Filt Rate 69 ml/min (>60); GFR (African American) 84 ML/MIN (>60)
[2022-07-10 03:12] LABS: Alanine Aminotransferase 48 U/L (12-78); Albumin Level 4.1 g/dl (3.5-5.0); Albumin/Globulin Ratio 1.3 (1.1-1.8); Alkaline Phosphatase 93 U/L (38-126); Anion Gap 13.7 mEq/L (5-15); Aspartate Amino Transferase 52 U/L (17-59); Bilirubin,Total 0.5 mg/dl (0.2-1.3); Calcium 8.4 mg/dl (8.4-10.2); Carbon Dioxide 28 mmol/L (22.0-30.0); Globulin 3.2 g/dL (1.3-3.2); Glucose 165 mg/dl (74-100); Total Protein,Serum 7.3 g/dl (6.3-8.2)
[2022-07-10 03:20] LABS: NT Pro Brain Natriuretic Pep. 13.9 pg/mL (0-125)
[2022-07-10 03:25] LABS: D-Dimer 0.94 ug/mL (0.0-0.5)
[2022-07-10 03:26] LABS: Troponin I 0.76 ng/ml (0.00-0.034)
--- NOTE | 2022-07-10 04:05 | PC.NURSE ---
He is A&Ox4. His girlfriend is at the bedside. He reports chest pain radiating down his left arm. NSR on telemetry.
[2022-07-10 05:44] LABS: POC Glucose,Bedside 103 (70-110)
[2022-07-10 07:55] LABS: Chol/HDL Ratio 3.9 (1-3.5); Cholesterol 162 mg/dl (140-200); HDL Cholesterol 42 mg/dl (40-60); Triglycerides 119 mg/dl (30-150); VLDL Cholesterol 24 mg/dL (0-40)
[2022-07-10 08:05] LABS: Direct LDL Cholesterol 80.33 mg/dL (100-129)
[2022-07-10 08:14] LABS: Troponin I 3.28 ng/ml (0.00-0.034)
--- NOTE | 2022-07-10 08:41 | PC.NURSE ---
0813-Spoke to VESNA Aceves regarding elevated troponin of 3.28 0815- Spoke to Casey Sheppard MD. is on phone w/ cardiology at this time to discuss POC
--- NOTE | 2022-07-10 10:00 | ECG_ITS ---
APPROVED REPORT Exam: Resting ECG HR:83 bpm ECG Measurements Heart Rate 83 AXES MO 148 P 57 QRSd 93 QRS 35 QT 380 T 45 QTc 420 Conclusion SINUS RHYTHM NONSPECIFIC T-WAVE ABNORMALITY BORDERLINE ECG UNCONFIRMED REPORT Electronically signed by : Sony Rucker MD 07/12/2022 19:25:15
[2022-07-10 11:07] LABS: CATHL Activated Clotting Time > 400 SEC (74-125)
--- NOTE | 2022-07-10 13:03 | HMH.PHAINT1 ---
Pharmacy Intervention Comments: MEDICATION RECONCILIATION COMPLETED ON PATIENT USING EXTERNAL FILL HISTORY FROM PHARMACY. -FERMIN PÉREZ, EMELYND
[2022-07-10 17:48] LABS: POC Glucose,Bedside 202 (70-110)
--- NOTE | 2022-07-10 18:37 | PC.NURSE ---
At the beginning of this shift pt was c/o of chest pain that radiating to his left arm. He rated the pain an 8 out of 10, and described the pain as pressure . Per MD Gurwinder Sheppard, sublingual nitro was ordered. After x2 doses, pt reported adequate pain relief at 4 out of 10. Pt went to the photo lab technician this shift, 1 stent to the LAD. Radialband was removed and clean dressing applied- no bleeding, bruising or hematoma noted. VSS. Family currently at bedside. Pt anticipating discharge back home tomorrow. No other acute changes or complaints.
[2022-07-10 19:59] LABS: POC Glucose,Bedside 183 (70-110)
[2022-07-10 20:35] LABS: Troponin I 6.47 ng/ml (0.00-0.034)
--- NOTE | 2022-07-10 21:19 | PC.NURSE ---
He is A&Ox4. His speech is clear. He denies chest pain. he repots his last BM was today. He ambulates independently. Right radial site DSG is C/D/I. Educated him to not put any pressure on his RUE. He verbalizes understanding. NSR on telemetry.
[2022-07-11] VITALS: PULSE 110
[2022-07-11 04:00] VITALS: BP 131/77; PULSE 100; PULSE 98; RESP 16; TEMP 36.9; O2SAT 94; BMI 35.0
[2022-07-11 05:09] LABS: POC Glucose,Bedside 141 (70-110)
[2022-07-11 07:29] LABS: Basophils % 0.2 % (0.1-2.0); Hematocrit 48.6 % (42.0-52.0); Hemoglobin 15.7 g/dL (14.1-18.0); Lymphocytes # 1.6 K/mm3 (0.7-4.5); Lymphocytes % 7.6 % (10-50); Mean Corpuscular HGB Conc 32.4 g/dL (31.8-35.4); Mean Corpuscular Hemoglobin 30.5 pg (27.0-31.2); Mean Corpuscular Volume 94.2 fl (80-94); Mean Platelet Volume 8.5 fl (7.4-10.4); Monocytes # 1.1 K/mm3 (0.1-1.0); Monocytes % 5.5 % (1.7-9.3); Neutrophils # 17.9 K/mm3 (1.8-7.8); Neutrophils % 86.7 % (37.0-80.0); Platelet Count 284 K/mm3 (142-424); Red Blood Count 5.16 M/mm3 (4.60-6.20); Red Cell Distribution Width 13.8 % (11.5-17.5); White Blood Count 20.6 K/mm3 (4.8-10.8)
[2022-07-11 07:37] LABS: MANUAL DIFFERENTIAL MANUAL DIFFERENTIAL (MANUAL DIFF)
[2022-07-11 07:42] LABS: Anion Gap 11.9 mEq/L (5-15); Blood Urea Nitrogen 34 mg/dl (9-20); Calcium 8.4 mg/dl (8.4-10.2); Carbon Dioxide 25 mmol/L (22.0-30.0); Chloride 103 mmol/L (98-107); Creatinine Clearance Estimated 118 mL/min (50-200); Estimated Glomerular Filt Rate 69 ml/min (>60); GFR (African American) 84 ML/MIN (>60); Glucose 144 mg/dl (74-100); Potassium 3.9 mmoL/L (3.5-5.1); Sodium 136 mmol/L (136-145)
[2022-07-11 07:45] VITALS: O2SAT 96
[2022-07-11 08:00] VITALS: BP 127/92; PULSE 100; PULSE 89; RESP 20; TEMP 36.8; O2SAT 96
[2022-07-11 08:08] LABS: Lymphocytes % 12 % (10-50); Monocytes % 2 % (2-9); Neutrophils % 86 % (42-76); Platelet Estimate Normal; RBC Morphology Normal; Total Cells Counted 100
--- NOTE | 2022-07-11 11:30 | EXP.DC.SUM ---
General Admission date:: 07/10/22 Discharge date: 07/11/22 HPI HPI HPI: Mr. Cruz is a 56-year-old male with a past medical history of DM, Peripheral Neuropathies, BPH and Hypertension. He presents as a transfer from [facility] due to acute onset of chest pain that occurred right before arrival. The patient was transferred for Cardiology evaluation. He was seen upon presentation to the facility. He reports that the chest pain occurred at approximately 2000 while he was at work, he reports that activity or resting did not make the pain worse. He reports that the pain went from the mid-chest region down the left arm. He denies that the pain was associated with shortness of air. He reports a prior heart cath and stress testing done in [place] approximately 3 years ago. He reports that he does not recall the facility name. At the outlying facility, EKG showed NSR with rate of [address] segment depression. Troponin was elevated. CTA of the chest showed no PE with mild atelectasis. The patient will be admitted with initial impression: Chest Pain, Cardiology will be consulted to see the patient. He will be monitored on telemetry with serial troponin. FLP and echo have been ordered. The plan of care was discussed with the patient on admission. He verbalizes understanding and agreement with the plan of care. Hospital Course Hospital Course Hospital Course: Patient was admitted from an outside facility with NSTEMI. [facility] due to recalcitrant chest pain and increasing troponins. Received PCI x2 to proximal LAD and mid LAD Has moderate nonobstructive disease in circumflex artery. Monitored on telemetry with no events 24 hours. Started on WON inhibitor beta-talha Prior to discharge. We will continue dual antiplatelet therapy. Vitals within normal limits, other antianginals held to prevent hypotension. Cardiology consulted will follow up in clinic this week. Will need transthoracic echo on evaluation. Risk factor modification. Patient was advised to take off work due to recent heart attack. Unlikely he will be able to take off work and is hesitant. Exam Data for Last 24 hours Vital signs and Labs for Last 24 Hours: Temp Pulse Resp BP Pulse Ox 98.3 F 89 20 127/92 H 96 07/11/22 08:00 07/11/22 08:00 07/11/22 08:00 07/11/22 08:00 07/11/22 08:00 Laboratory Results - last 24 hr 07/10/22 17:33: POC Glucose 202 H 07/10/22 19:50: Troponin I 6.47 H 07/10/22 19:50: POC Glucose 183 H 07/11/22 05:00: POC Glucose 141 H 07/11/22 06:35: WBC 20.6 H* D, RBC 5.16, Hgb 15.7, Hct 48.6, MCV 94.2 H, MCH 30.5, MCHC 32.4, RDW 13.8, Plt Count 284, MPV 8.5, Neut % (Auto) 86.7 H, Lymph % (Auto) 7.6 L, Tompkins % (Auto) 5.5, Eos % (Auto) 0.0 L, Baso % (Auto) 0.2, Neut # (Auto) 17.9 H, Lymph # (Auto) 1.6, Tompkins # (Auto) 1.1 H, Eos # (Auto) 0.0, Baso # (Auto) 0.0, Total Counted 100, Neutrophils % (Manual) 86 H, Lymphocytes % (Manual) 12, Monocytes % (Manual) 2, Platelet Estimate Normal, RBC Morphology Normal 07/11/22 06:35: Sodium 136, Potassium 3.9, Chloride 103, Carbon Dioxide 25, Anion Gap 11.9, BUN 34 H D, Creatinine 1.10, Estimated Creat Clear 118, Estimated GFR 69, Est GFR ( Amer) 84, Glucose 144 H, Calcium 8.4 I & O for Last 24 hours: Intake & Output 07/08/22 07/09/22 07/10/22 07/11/22 23:59 23:59 23:59 23:59 Intake Total 850 / 850 370 / 370 Output Total 300 / 300 600 / 600 Balance 550 / 550 -230 / -230 Weight 109.316 kg 110.875 kg Constitutional Constitutional: no acute distress and cooperative *Routine HEENT Exam Head: Present normocephalic and atraumatic ENT: Present mucous membranes moist *Routine Neck Exam Neck: Present supple and full ROM *Routine Respiratory Exam Respiratory: Present CTA bilaterally; Absent accessory muscle use *Routine Cardiovascular Exam Cardiovascular: Present RRR, Normal S1 and Normal S2 *Routine Abdominal Exam Abdominal: Presen
--- NOTE | 2022-07-11 11:43 | P.CONPHA_ITS ---
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 PATIENT VERBALIZED UNDERSTANDING AND HAD NO QUESTIONS AT THIS TIME. -FERMIN ODONNELL, EMELYND
[2022-07-11 12:00] VITALS: BP 114/94; PULSE 86; RESP 16; TEMP 36.7; O2SAT 99
--- NOTE | 2022-07-13 14:33 | CARE MANAGER ---
Attempted post-discharge phone interview, only number listed is wrong number.
== END 2022-07-11 12:55 | disposition home or self-care (01) | DRG 247 ==
PROVIDERS: Internal Medicine; Nurse Practitioner Family; Admitting Provider Student in an Organized Health Care Education/Training Program; PCP Internal Medicine Adolescent Medicine; Visit Provider Student in an Organized Health Care Education/Training Program
PROC: 027034Z Dilation of Coronary Artery, One Artery with Drug-eluting Intraluminal Device, Percutaneous Approach (ICD-10-PCS; principal; 2022-07-10 10:30)
DX: I25.10 Atherosclerotic heart disease of native coronary artery without angina pectoris (principal); R07.9 Chest pain, unspecified; E11.9 Type 2 diabetes mellitus without complications; I21.4 Non-ST elevation (NSTEMI) myocardial infarction; I10 Essential (primary) hypertension; Z79.84 Long term (current) use of oral hypoglycemic drugs
CPT/HCPCS: 36415; 80048; 80053; 80061; 82962; 83880; 84484; 85007; 85025; 85347; 85378; 92928; 93005; 93458; 99152; C1725; C1769; C1876; C9600; C9803; G0378; J1644; Q9967; U0003; U0005

== ENCOUNTER → 2022-07-15 09:15 | Outpatient (CLI) | payer BC, SELFPAY ==
[2022-07-15 10:13] LABS: Hemoglobin A1C 6.5 % (4.0-6.0)
[2022-07-15 12:43] LABS: Basophils # 0.2 K/mm3 (0-0.2); Basophils % 1.5 % (0.1-2.0); Eosinophils # 0.2 K/mm3 (0.0-0.4); Eosinophils % 1.5 % (0.1-12.0); Hematocrit 54.6 % (42.0-52.0); Hemoglobin 17.2 g/dL (14.1-18.0); Lymphocytes # 2.6 K/mm3 (0.7-4.5); Lymphocytes % 23.6 % (10-50); Mean Corpuscular HGB Conc 31.5 g/dL (31.8-35.4); Mean Corpuscular Hemoglobin 31.2 pg (27.0-31.2); Mean Corpuscular Volume 98.9 fl (80-94); Mean Platelet Volume 9.3 fl (7.4-10.4); Monocytes # 0.8 K/mm3 (0.1-1.0); Monocytes % 7.3 % (1.7-9.3); Neutrophils # 7.3 K/mm3 (1.8-7.8); Neutrophils % 66.1 % (37.0-80.0); Platelet Count 294 K/mm3 (142-424); Red Blood Count 5.52 M/mm3 (4.60-6.20); Red Cell Distribution Width 13.8 % (11.5-17.5)
== END ==
PROVIDERS: PCP Internal Medicine Adolescent Medicine; Visit Provider Nurse Practitioner Family
DX: E11.65 Type 2 diabetes mellitus with hyperglycemia (principal); E11.40 Type 2 diabetes mellitus with diabetic neuropathy, unspecified; Z79.84 Long term (current) use of oral hypoglycemic drugs
CPT/HCPCS: 36415; 83036; 85025

== ENCOUNTER → 2022-08-04 11:09 | Outpatient (CLI) | payer BC, SELFPAY ==
--- NOTE | 2022-08-04 11:16 | XR_ITS ---
FINAL REPORT CLINICAL HISTORY: b/l foot pain FINDINGS: LEFT FOOT Three weight-bearing views of the left foot demonstrate no acute fracture or dislocation. The joint spaces are preserved. There are calcaneal spurs. The soft tissues are unremarkable. IMPRESSION: No acute bony abnormality. Reviewed, Interpreted and Dictated by Amado Fairchild III, MD Transcribed by Milly Mohamud Authenticated and [facility]
--- NOTE | 2022-08-04 11:16 | XR_ITS ---
FINAL REPORT CLINICAL HISTORY: b/l foot pain FINDINGS: RIGHT FOOT Three weight-bearing views of the right foot demonstrate no acute fracture or dislocation. The joint spaces are preserved. There are calcaneal spurs. The soft tissues are unremarkable. IMPRESSION: No acute bony abnormality. Reviewed, Interpreted and Dictated by Amado Fairchild III, MD Transcribed by Milly Mohamud Authenticated and [facility]
== END ==
LOC: RAD 11:11
PROVIDERS: PCP Internal Medicine Adolescent Medicine; Visit Provider Podiatrist
DX: M79.671 Pain in right foot (principal); M79.672 Pain in left foot
CPT/HCPCS: 73630

== ENCOUNTER 2022-12-12 12:06 | Emergency (ER) | payer BC, SELFPAY ==
[2022-12-12] VITALS (11 sets, daily range): BP systolic 132–165; BP diastolic 87–107; PULSE 65–82; RESP 16–19; TEMP 36.6–36.7; O2SAT 95–98; BMI 32.1
--- NOTE | 2022-12-12 12:03 | ECG_ITS ---
APPROVED REPORT Exam: Resting ECG HR:80 bpm ECG Measurements Heart Rate [address] 147 P 58 QRSd 89 QRS 31 QT 397 T 63 QTc 432 Conclusion SINUS RHYTHM NORMAL ECG UNCONFIRMED REPORT Electronically signed by : Sony Rucker MD 12/14/2022 20:14:59
--- NOTE | 2022-12-12 12:19 | XR_ITS ---
PROCEDURE INFORMATION: Exam: XR Chest Exam date and time: 12/12/2022 12:20 PM Age: 57 years old Clinical indication: Sternal or substernal pain; Prior surgery; Surgery date: 6+ months; Surgery type: 2 cardiac stents placed; Additional info: Chest pain TECHNIQUE: Imaging protocol: Radiologic exam of the chest. Views: 1 view. COMPARISON: CR CHEST SINGLE VIEW/PORTABLE 07/09/2022 8:50 PM FINDINGS: Lungs: Unremarkable. No consolidation. Pleural spaces: Unremarkable. No pleural effusion. No pneumothorax. Heart/Mediastinum: Unremarkable. No cardiomegaly. Bones/joints: Unremarkable for age. IMPRESSION: Negative chest exam.
--- NOTE | 2022-12-12 12:22 | HMH.EDGENADL ---
Discharge Plan Disposition Patient Disposition: Home, Self-Care Prescriptions Prescriptions: No Action metformin 1,000 mg tablet 1,000 mg PO BIDWMEAL atorvastatin 80 mg tablet 80 mg PO HS Qty: 90 3RF lisinopril 20 mg tablet 20 mg PO DAILY Qty: 90 3RF metoprolol succinate 100 mg tablet extended release 24 hr 100 mg PO DAILY Qty: 90 3RF Brilinta 90 mg tablet 90 mg PO BID Qty: 180 3RF Farxiga 10 mg tablet 10 mg PO DAILY Qty: 90 3RF tamsulosin 0.4 MG capsule 0.4 mg PO HS dulaglutide 1.5 MG/0.5 ML pen injector 1.5 mg SQ WEEKLY gabapentin 300 mg capsule 300 mg PO TID Label Comments: TAKE 1 CAPSULE BY MOUTH 3 TIMES A DAY aspirin 81 mg Tablet,Delayed Release (Dr/Ec) 81 mg PO DAILY 30 Days Qty: 30 0RF nitroglycerin [Nitrostat] 0.4 mg Tablet, Sublingual 0.4 mg sublingual Q5MINP PRN (Reason: Chest Pain) 30 Days Qty: 30 0RF Referrals Follow up/Referrals: Sony Sheppard MD [Staff Physician] - See instructions (call for close follow up ) Clinical Impressions Clinical Impression: Chest pain Discharge ED Provider: Carolyn Gamble General Adult HPI General Chief complaint: Chest Pain Stated complaint: CHEST PAIN Time Seen by Provider: 12/12/22 12:22 Mode of Arrival: Ambulatory Source of Information: Patient Limitations: No Limitations Description of Symptoms (Recalled from ER Triage Doc. by RN): 57 yo M presents to ED with c/o chest tightness and shortness of air. pt states symptoms ongoing for a couple of days, intermittent. pt states that he did have heart attack approx 3 months ago and did have stents placed. pain is worse with excertion. History of Present Illness HPI narrative: Patient is a 57-year-old male presenting with chest pain. He has a known history of coronary disease was admitted in July of this year with an NSTEMI had stents that were placed in the LAD and is followed by Dr. Sheppard. He is on dual antiplatelet therapy states that he took all of his medications this morning except he ran out of aspirin yesterday. States his chest pain is retrosternal nonradiating not associated with dyspnea or diaphoresis and has been exertional in nature. Much less severe than the chest pain he had with his NSTEMI in July. No other alleviating or aggravating symptoms. Related Data Home Medications Medication Instructions Recorded Confirmed dulaglutide 1.5 mg/0.5 mL 1.5 mg SQ WEEKLY Diabetes 12/07/20 10/14/22 subcutaneous pen injector tamsulosin 0.4 mg capsule 0.4 mg PO HS prostate 12/07/20 10/14/22 metformin 1,000 mg tablet 1,000 mg PO BIDWMEAL Diabetes 01/07/21 10/14/22 gabapentin 300 mg capsule 300 mg PO TID Pain 07/10/22 10/14/22 Previous Rx's Medication Instructions Recorded dapagliflozin propanediol 10 mg 10 mg PO DAILY Diabetes #90 tabs 06/02/22 tablet (Farxiga) aspirin 81 mg tablet,delayed 81 mg PO DAILY 30 days #30 tabs 07/11/22 release nitroglycerin 0.4 mg sublingual 0.4 mg sublingual Q5MINP PRN Chest 07/11/22 tablet (Nitrostat) Pain 30 days #30 tabs atorvastatin 80 mg tablet 80 mg PO HS #90 tabs 07/15/22 lisinopril 20 mg tablet 20 mg PO DAILY #90 tabs 07/15/22 metoprolol succinate 100 mg 100 mg PO DAILY #90 tabs 07/15/22 tablet,extended release 24 hr ticagrelor 90 mg tablet (Brilinta) 90 mg PO BID #180 tabs 07/15/22 Allergies Allergy/AdvReac Type Severity Reaction Status Date / Time Iodinated Contrast Media Allergy Vomiting Verified 10/14/22 09:32 oxybutynin Allergy Hives Verified 10/14/22 09:32 [facility] Disclaimer: The information contained in this section may have been updated after the patient was seen, as this information can be updated by other users. Medical History BPH (benign prostatic hyperplasia) Coronary artery disease Diabetes Peripheral neuropathy Surgical History History of coronary a
--- NOTE | 2022-12-12 12:25 | PC.NURSE ---
XRAY AT BS
[2022-12-12 12:29] LABS: Chloride 102 mmol/L (98-107); Potassium 3.7 mmoL/L (3.5-5.1); Sodium 141 mmol/L (136-145)
[2022-12-12 12:32] LABS: Anion Gap 12.7 mEq/L (5-15); Blood Urea Nitrogen 18 mg/dl (9-20); Calcium 8.7 mg/dl (8.4-10.2); Carbon Dioxide 30 mmol/L (22.0-30.0); Creatinine Clearance Estimated 134 mL/min (50-200); Estimated Glomerular Filt Rate 87 ml/min (>60); GFR (African American) 105 ML/MIN (>60); Glucose 135 mg/dl (74-100)
[2022-12-12 12:37] LABS: Basophils # 0.1 K/mm3 (0-0.2); Basophils % 0.6 % (0.1-2.0); Eosinophils # 0.1 K/mm3 (0.0-0.4); Hemoglobin 15.7 g/dL (14.1-18.0); Lymphocytes # 1.7 K/mm3 (0.7-4.5); Lymphocytes % 18.4 % (10-50); Mean Corpuscular HGB Conc 31.9 g/dL (31.8-35.4); Mean Corpuscular Hemoglobin 30.6 pg (27.0-31.2); Mean Corpuscular Volume 95.7 fl (80-94); Mean Platelet Volume 8.6 fl (7.4-10.4); Monocytes # 0.5 K/mm3 (0.1-1.0); Monocytes % 5.7 % (1.7-9.3); Neutrophils # 6.7 K/mm3 (1.8-7.8); Neutrophils % 74.3 % (37.0-80.0); Platelet Count 211 K/mm3 (142-424); Red Blood Count 5.13 M/mm3 (4.60-6.20); Red Cell Distribution Width 13.9 % (11.5-17.5)
--- NOTE | 2022-12-12 13:20 | PC.NURSE ---
DEUCE ROUNDED ON PT
[2022-12-12 13:24] LABS: Troponin I < 0.01 ng/ml (0.00-0.034)
--- NOTE | 2022-12-12 14:30 | PC.NURSE ---
pt is sleeping in bed , tap pradhan at bs
--- NOTE | 2022-12-12 15:02 | PC.NURSE ---
DEUCE CHECKED ON PT
--- NOTE | 2022-12-12 15:42 | PC.NURSE ---
DEUCE ROUNDED ON PT
[2022-12-12 16:18] LABS: Troponin I < 0.01 ng/ml (0.00-0.034)
--- NOTE | 2022-12-12 16:31 | PC.NURSE ---
DEUCE ROUNDED ON PT
== END 2022-12-12 17:01 | disposition home or self-care (01) ==
PROVIDERS: Emergency Provider Student in an Organized Health Care Education/Training Program
DX: R07.9 Chest pain, unspecified (principal); R06.02 Shortness of breath; I25.2 Old myocardial infarction; I25.10 Atherosclerotic heart disease of native coronary artery without angina pectoris; E11.40 Type 2 diabetes mellitus with diabetic neuropathy, unspecified; N40.0 Benign prostatic hyperplasia without lower urinary tract symptoms; Z79.02 Long term (current) use of antithrombotics/antiplatelets
CPT/HCPCS: 71045; 80048; 84484; 85025; 93005; 99285